=== PATIENT | female | born 1955 | race Caucasian/White ===

== ENCOUNTER 2020-03-18 13:22 | Emergency (ER) | payer BC, SELFPAY ==
[2020-03-18 13:35] VITALS: BP 140/97; PULSE 82; RESP 18; TEMP 37.2; O2SAT 98
--- NOTE | 2020-03-18 13:41 | ED.NAVMDI ---
HPI - Nausea/Vomiting/Diarrhea General Chief complaint: Nausea/Vomiting/Diarrhea Stated complaint: nausea headache Time Seen by Provider: 03/18/20 13:41 Source: patient and RN notes reviewed History of Present Illness HPI Narrative: Patient is a 65-year-old female who presents the urgent care with complaints of nausea, headache, chills, sweats and sneezing. Patient states her symptoms started on Monday and the chills and sweats are more sore during the headache. Patient states that the headache has come and gone and she has not taken anything specifically for her headache. Patient states that she has bad allergies and they recently cut the corn near her house and she typically has allergy-like symptoms after that occurs. Patient denies of any known fever. Denies of any vomiting or diarrhea with the nausea. Denies of any abdominal pain. 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 Patient states that she just does not feel good but is mostly referring to the nausea. Patient states that she has not been fatigued because she has been taking CBD which makes her feel like she has a lot of energy . Patient does not appear to have any signs or symptoms of fatigue, lethargy, harsh upper respiratory symptoms. No acute distress noted. Patient aware of the plan of care. Some parts of this dictation were generated by voice recognition software and may contain typographical and/or grammatical inaccuracies. Related Data Home Medications Medication Instructions Recorded Confirmed Cbd Oil 03/18/20 alprazolam 0.25 mg PO HS PRN 03/18/20 03/18/20 apixaban [Eliquis] 5 mg PO BID 03/18/20 03/18/20 lisinopril 10 mg PO BID PRN 03/18/20 03/18/20 tizanidine 4 mg PO TID PRN 03/18/20 03/18/20 Allergies Allergy/AdvReac Type Severity Reaction Status Date / Time No Known Allergies Allergy Verified 03/18/20 13:48 Review of Systems Review of Systems: Narrative: CONSTITUTIONAL: Reports of chills and sweats without known fever EYES: Denies visual changes, redness, or discharge. ENT: Denies rhinorrhea, congestion, sore throat, or otalgia. Reports of excessive sneezing CARDIOVASCULAR: Denies chest pain, palpitations, or edema. RESPIRATORY: Denies cough or dyspnea. GASTROINTESTINAL: Reports of nausea without diarrhea, vomiting or abdominal pain GENITOURINARY: Denies dysuria or hematuria. SKIN: Denies rash or itching. MUSCULOSKELETAL: Denies back pain, joint pain, or myalgia. NEUROLOGIC: Reports of headache All other systems reviewed are negative, except as documented in HPI. PMFSH Comments At the time of my signature, I reviewed and agree with the nursing past medical, surgical, social, and family history. There is no relevant family history pertinent to the patient complaint. Exam Narrative: Exam Narrative: GENERAL: This is a well-nourished, well-developed patient, in no apparent distress. HEAD: normocephalic, atraumatic. EYES: PERRL. Sclera clear/white. Vision is grossly intact. EARS: External ears normal, auditory canals clear and without drainage, TMs normal without perforation. Hearing grossly intact. NOSE: External nose normal with no obvious nasal discharge, nares without redness, no rhinorrhea. THROAT: Mucous membranes moist, posterior pharynx clear. Mild postnasal drainage NECK: Neck supple, non-tender without lymphadenopathy, masses or thyromegaly. CARDIOVASCULAR: Regular rate and rhythm without murmurs, gallops, or rubs. RESPIRATORY: Clear to auscultation. Breath sounds equal bilaterally. No wheezes, rales, or rhonchi. GASTROINTESTINAL: Abdomen soft, non-tender, nondistended. Bowel sounds are active. SKIN: warm, intact with no suspicious lesions or rash, good texture and turgor. NEURO: awake, alert, and oriented to person, place and time. There were no obvious focal neurologic abnormalities. EXTREMITIES: No clu
== END 2020-03-18 14:10 | disposition home or self-care (01) ==
PROVIDERS: Emergency Provider Nurse Practitioner Family
DX: R11.0 Nausea (principal); I10 Essential (primary) hypertension; Z86.711 Personal history of pulmonary embolism; M06.9 Rheumatoid arthritis, unspecified; M79.7 Fibromyalgia
CPT/HCPCS: 99213; G0463

== ENCOUNTER 2020-05-29 07:55 | Outpatient (RCR) | payer BC, SELFPAY ==
--- NOTE | 2020-05-29 09:21 | PTOPEVAL ---
Thank you for referring Josefina Urbano to [facility].? The patient is scheduled to be seen for therapy? __3__x/week for 12 visits. Please review, sign, date and return this plan of care KENA. I agree with and certify that the following plan of care is medically necessary. Referring Physician Date Admitting Provider: Attending Provider: Ronnell Spicer MD Referring Provider: *PT Outpatient Evaluation Start: 05/29/20 07:56 Freq: Status: Active Protocol: Document 05/29/20 07:56 ACR (Rec: 05/29/20 09:20 ACR [id number]) Therapy Assessment Status Assessment Status Assessment Status Evaluation Outpatient Past Medical History Cardiovascular History Hx Hypertension Yes Respiratory History Hx Pulmonary Embolism Yes Musculoskeletal History Hx Arthritis Yes: RHEUMATOID Hx Fibromyalgia Yes Reproductive History Hx Post Menopausal Yes Hx Tubal Ligation Yes Evaluation Information Problem Diagnosis L knee OA Onset 12/28/19 Subjective Information Patient states that she went Query Text:As Reported By Patient/ to her orthopedic MD on 21 for her knee pain that has been increasing since november. She states she received a cortisone shot on the medial aspect of the knee at the MD on 05/27/20 and the pain has decreased to where she is not waking up with the pain. She has to be careful walking, bending down to get something off the floor , and if she crosses her leg or does any type of twisting motion due to her pain increasing with these movements. She wears a knee brace cathode ray tube assembler that helps when she does bend it. She has stairs to get to her basement and to 3 steps to get into her home. Patient lives alone. Is off of work currently for 3 weeks until she see the doctor again . She states she has a friend that would help her if she needs help, but does as much as she can with breaks between . Prior Level of Function Activity Level (Last 3 Months) Occupation rear load truck driver [employer]
--- NOTE | 2020-08-03 16:10 | PCPTNOTE ---
Patient participated in 8 visits between the dates 05/29/20 to 06/22/20. She has been contacted and has failed to return call to finish POC. Please refer to last daily note for discharge status. Rika Pearce, PT, DPT
== END 2020-06-22 16:15 | disposition home or self-care (01) ==
LOC: CHSPT 07:55
PROVIDERS: Visit Provider Orthopaedic Surgery
DX: M17.12 Unilateral primary osteoarthritis, left knee (principal)
CPT/HCPCS: 97110; 97112; 97161; 97530

== ENCOUNTER 2020-11-09 12:08 | Outpatient (CLI) | payer BC, SELFPAY ==
--- NOTE | ~2020-11-09 | XR_ITS ---
EXAMINATION: XR wrist RT min 3V DATE: 11/09/2020 12:34 INDICATION: Right wrist injury. TECHNIQUE: 4 views of right wrist were obtained. COMPARISON: None. FINDINGS: Bone alignment is normal. No fracture. There is mild osteoarthritis of distal radioulnar shiv int. There is degenerative cystic change in proximal lunate, consistent with ulnolunate impaction syn drome. There is mild osteoarthritis of first and third metacarpophalangeal joints. IMPRESSION: 1. Polyarticular osteoarthritis. Reviewed, dictated and finalized at location A.
--- NOTE | ~2020-11-09 | XR_ITS ---
EXAMINATION: XR hand RT min 3V DATE: 11/09/2020 12:34 INDICATION: Right hand injury. TECHNIQUE: 3 views of right hand were obtained. COMPARISON: None. FINDINGS: Bone alignment is normal. No acute fracture. There is an old healed fracture of head of fif th middle phalanx. There is mild osteoarthritis of distal radioulnar joint, first and third metacarpo phalangeal joints, and some of the interphalangeal joints. IMPRESSION: 1. Polyarticular osteoarthritis. Reviewed, dictated and finalized at location A.
== END 2020-11-09 12:09 | disposition home or self-care (01) ==
LOC: CHSIMG 12:11
PROVIDERS: PCP Internal Medicine; Visit Provider Internal Medicine
DX: S69.91XA Unspecified injury of right wrist, hand and finger(s), initial encounter (principal)
CPT/HCPCS: 73110; 73130

== ENCOUNTER 2021-03-15 11:31 | Outpatient (CLI) | payer BC, SELFPAY ==
--- NOTE | ~2021-03-15 | XR_ITS ---
EXAMINATION: XR shoulder LT min 2V DATE: 03/15/2021 11:54 INDICATION: Left shoulder pain. TECHNIQUE: 4 views of left shoulder were obtained. COMPARISON: None. FINDINGS: Bone alignment is normal. No fracture. Glenohumeral joint is normal. There is severe acromi oclavicular joint osteoarthritis. IMPRESSION: 1. Severe acromioclavicular joint osteoarthritis. Reviewed, dictated and finalized at location A. MIDWIFE
== END 2021-03-15 11:32 | disposition home or self-care (01) ==
LOC: CHSIMG 11:33
PROVIDERS: PCP Internal Medicine; Visit Provider Nurse Practitioner Family
DX: M25.512 Pain in left shoulder (principal)
CPT/HCPCS: 73030

== ENCOUNTER 2021-12-07 13:49 | Outpatient (CLI) | payer BC, SELFPAY ==
--- NOTE | ~2021-12-07 | XR_ITS ---
EXAMINATION: XR chest 2V 12/07/2021 14:18 INDICATION: Fatigue. Smoker. PROCEDURE: 2 view chest COMPARISON: 06/22/2018 FINDINGS: The lungs are clear. The cardiomediastinal silhouette is within normal limits. There are no pleural effusions. There is no pneumothorax suspected. IMPRESSION: 1: NO ACUTE CARDIOPULMONARY DISEASE. Reviewed, dictated and finalized at location A.
[2021-12-07 14:05] LABS: Basophils Absolute Auto 0.07 K/mm3 (0.00-0.10); Eosinophils Absolute Auto 0.19 K/mm3 (0.02-0.50); Eosinophils Percent Auto 2.6 % (1.0-6.0); Hematocrit 41.1 % (35.0-49.0); Hemoglobin 13.6 g/dL (12.0-15.0); Immature Granulocyte Absolute 0.02 K/mm3 (0.00-0.00); Immature Granulocyte Percent A 0.3 % (0.0-0.0); Lymphocytes Absolute Auto 1.74 K/mm3 (1.10-4.50); Lymphocytes Percent Auto 23.9 % (18.0-42.0); Mean Corpuscular HGB Conc 33.1 g/dL (32.0-36.0); Mean Corpuscular Hemoglobin 32.9 pg (27.0-31.0); Mean Corpuscular Volume 99.5 fL (78.0-102.0); Mean Platelet Volume 8.9 fl (9.2-11.8); Monocytes Percent Auto 8.2 % (2.0-11.0); Neutrophils Absolute Auto 4.7 K/mm3 (1.7-7.2); Platelet Count Result 196 K/mm3 (150-420); Red Blood Count 4.13 M/mm3 (4.20-5.40); Red Cell Distribution Width 13.6 % (11.6-14.4); White Blood Count 7.3 K/mm3 (4.8-10.8)
[2021-12-07 14:08] LABS: Appearance Urine Clear (Clear); Bilirubin Urine Negative (Negative); Color Urine Light Yellow (Yellow); Glucose Urine UA Negative (Negative); Ketones Urine Negative (Negative); Leukocyte Esterase Ur Trace (Negative); Nitrate Urine Negative (Negative); Protein Urine Negative (Negative); Urobilinogen Urine 0.2 mg/dL (0.2-1.0); pH Urine 5.5 (5.0-8.0)
[2021-12-07 14:12] LABS: Add Urine Microscopic? YES; Bacteria Urine None seen /hpf; Blood Urine Trace-Intact (Negative); RBC Urine 0-2 /hpf (0-2); Squamous Epithelial Cell Urine Rare /hpf (Few); WBC Urine 0-3 /hpf (0-3)
[2021-12-07 15:06] LABS: Alanine Aminotransferase 24 U/L (14-59); Albumin Level 3.7 g/dL (3.4-5.0); Alkaline Phosphatase 90 U/L (46-116); Anion Gap 10 mmol/L (8-16); Aspartate Amino Transferase 21 U/L (15-37); Bilirubin,Total 0.4 mg/dL (0.00-1.00); Blood Urea Nitrogen 10 mg/dL (7-18); Calcium 8.9 mg/dL (8.5-10.1); Carbon Dioxide 26 mmol/L (21-32); Chloride 105 mmol/L (98-108); Estimated Glomerular Filt Rate > 60; Free T3 2.06 pg/mL (2.18-3.98); Free T4 Free Thyroxine 0.79 ng/dL (0.76-1.46); Glucose 93 mg/dL (70-99); Osmolality Calculated 291 mOsm/kg (285-295); Potassium 4.6 mmol/L (3.5-5.1); Sodium 141 mmol/L (136-145); Thyroid Stimulating Hormone 0.58 uIU/mL (0.36-3.74); Total Protein 6.5 g/dL (6.4-8.2)
[2021-12-07 15:12] LABS: CRP < 0.2 mg/dL (0.0-0.9); Vitamin B12 > 2000 pg/mL (193-986)
[2021-12-10 09:00] LABS: Methylmalonic Acid 167 nmol/L (87-318)
== END 2021-12-07 13:50 | disposition home or self-care (01) ==
LOC: CHSLAB 13:52
PROVIDERS: PCP Internal Medicine; Visit Provider Internal Medicine
DX: R53.83 Other fatigue (principal); Z87.891 Personal history of nicotine dependence
CPT/HCPCS: 36415; 71046; 80053; 81001; 82607; 83921; 84439; 84443; 84481; 85025; 86140

== ENCOUNTER 2022-06-30 10:58 | Outpatient (RCR) | payer MEDICARE, SELFPAY ==
--- NOTE | 2022-06-30 11:45 | PTOPEVAL1 ---
Assessment and note entered by JT File, PT Evaluation Information Assessment Status Evaluation Diagnosis s/p L TKA Onset 06/27/22 Subjective Information patient reports she had a TKA on 06/27/22. she reports prior to her surgery she was moving slow and limping, but was not using an AD. she reports has a follow up with her MD on 07/08/22. she reports she would like to get back to walking without a limp/AD, ride horses, and care for farm. Reported Pain Level Pain Score 6: Self Report Assessment PT Clinical Summary mrs. lauren is a 67 yo woman who presents to skilled PT services for post op rehab following L TKA. she presents with deficits in rom, strength, ambulation mechanics, and has pain in the L knee. she would benefit from continued skilled PT to improve her objective/functional deficits and progress towards a return to her prior level functional activity performance and quality of life. Plan of Care Interventions Electrical Stimulation,Gait Training,Hot Pack/Cold Pack,Intermittent Compression,Manual Therapy, Neuro Re-education,Patient/Caregiver Educati, Therapeutic Activities,Therapeutic Exercise PT Services Indicated Yes Treatment Frequency and 3x weekly for 12 visits Duration These treatments will address the objective and functional deficits as defined above. The patient will be advanced safely and appropriately in order for the patient to progress towards his/her prior level of function. Additional exercises will be introduced and as well as a comprehensive home exercise program upon discharge, if needed, ?to ensure carryover of functional gains achieved in the clinic. This treatment plan has been reviewed and agreement upon by the patient.
--- NOTE | 2022-07-27 15:20 | PTOPPROG ---
Assessment and note entered by JT File, PT Evaluation Information Assessment Status Progress Diagnosis s/p L TKA Onset 06/27/22 Subjective Information patient reports she feels alright this date. 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 she reports she has been compliant with her HEP at home. she reports the knee still feels tight with bending. Assessment PT Clinical Summary mrs. lauren presents to skilled PT for her 10th skilled therapy visit today. she continues to display deficits in L knee rom and gait mechanics. she is progressing towards all goals, but has met goal for HEP performance only today. she would benefit from continued skilled PT to continue to address her objective/functional deficits to achieve all goals. Plan of Care Interventions Gait Training,Hot Pack/Cold Pack,Intermittent Compression,Manual Therapy,Neuro Re-education, Patient/Caregiver Educati,Therapeutic Activities, Therapeutic Exercise PT Services Indicated Yes Treatment Frequency and continue per initial POC Duration These treatments will address the objective and functional deficits as defined above. The patient will be advanced safely and appropriately in order for the patient to progress towards his/her prior level of function. Additional exercises will be introduced and as well as a comprehensive home exercise program upon discharge, if needed, ?to ensure carryover of functional gains achieved in the clinic. This treatment plan has been reviewed and agreement upon by the patient.
== END 2022-08-01 15:18 | disposition home or self-care (01) ==
LOC: CHSPT 10:58
PROVIDERS: Visit Provider Orthopaedic Surgery
DX: Z47.1 Aftercare following joint replacement surgery (principal); Z96.652 Presence of left artificial knee joint
CPT/HCPCS: 97014; 97016; 97110; 97161; 97530; G0283

== ENCOUNTER 2022-09-12 14:06 | Emergency (ER) | payer MEDICARE, SELFPAY ==
[2022-09-12] VITALS (15 sets, daily range): BP systolic 152–168; BP diastolic 88–107; PULSE 79–90; RESP 18–20; TEMP 36.1–36.6; O2SAT 90–99
--- NOTE | ~2022-09-12 | XR_ITS ---
EXAMINATION: XR chest 2V DATE: 09/12/2022 15:47 INDICATION: Cough. Shortness of breath. TECHNIQUE: Frontal and lateral views of the chest were obtained. COMPARISON: Chest 2 views 12/07/2021 FINDINGS: There is mild atelectasis in the lower lung zones. No pleural effusion or pneumothorax. The heart size is normal. There are surgical clips in the abdomen. IMPRESSION: 1. Mild atelectasis in the lower lung zones. Reviewed, dictated and finalized at location A.
--- NOTE | 2022-09-12 14:20 | ED.SOB ---
HPI - SOB/Dyspnea General Chief Complaint: Upper Respiratory Infection Stated Complaint: cough; positive Flu B Time Seen by Provider: 09/12/22 14:19 Source: patient and RN notes reviewed Mode of arrival: ambulatory Limitations: no limitations History of Present Illness MD elicited complaint: shortness of breath and cough Onset (ago): day(s) (3) Context: recent illness ( Influenza B) Timing: intermittent Severity: moderate Exacerbating factors: exertion and coughing Relieving factors: rest Associated symptoms: cough and sputum production Treatment prior to arrival: none Related Data Home oxygen amount: none Home Medications Medication Instructions Recorded Confirmed apixaban 5 mg tablet (Eliquis) 5 mg PO BID 03/18/20 09/12/22 bupropion HCl 150 mg 24 hr tablet, 150 mg PO DAILY 09/12/22 09/12/22 extended release gabapentin 300 mg capsule 300 mg PO DAILY 09/12/22 09/12/22 losartan 25 mg tablet 25 mg PO BID 09/12/22 09/12/22 Allergies Allergy/AdvReac Type Severity Reaction Status Date / Time No Known Allergies Allergy Verified 09/12/22 14:31 Review of Systems Review of Systems: All systems reviewed & are unremarkable except as noted in HPI and below Constitutional: Constitutional: Denies chills and Denies fever(s) PMFSH Past Medical History Medical History Closed compression fracture of L1 vertebra (~12/20/16) Depression with anxiety (~07/20/15) Essential hypertension (~07/20/15) Fibromyalgia (Unknown) GERD (gastroesophageal reflux disease) (~07/20/15) History of anemia (~08/07/18) History of low back pain (~12/20/16) Hypothyroidism (~06/16/09) Insomnia (~07/20/15) Iron deficiency (~08/07/18) Midline thoracic back pain (~12/20/16) Pulmonary embolism without acute cor pulmonale (~05/17/18) Rheumatoid arthritis (~09/01/16) Surgical History Surgical History History of gastric bypass (~06/27/18) chronic Social History Social History (Updated 09/12/22 @ 16:14 by Dev Kaye MD) Smoking packs per day: 1 Smoking cigarettes per day: 20.0 Years smoked: 15 Smoking pack-years: 15.00 Smoking status: Former smoker Smoking end date: 07/14/03 Alcohol intake: unknown Substance use: unknown Exam Const: General: no acute distress, alert and ill appearing acutely Nutritional Appearance: well nourished Orientation/consciousness: patient oriented x3 Limitations: no limitations HENMT: Head: normal to inspection Ears: external ears normal Face/Nose/Sinus: Normal external nose present Face and sinus: normal facial exam Mouth: Yes moist mucous membranes Eyes: Conjunctivae: conjunctivae normal Pupils: Equal, round and reactive pupils present EOM: EOMs intact bilaterally Neck: Neck: normal visual inspection Resp: Effort & Inspection: normal respiratory effort Auscultation: rales diffuse and rhonchi throughout Cardio: Rate: regular rate Rhythm: regular rhythm GI: GI Palp: Yes Soft to palpation and No Tenderness to palpation present (GI) Auscultation: normal bowel sounds Back/Spine/Pelvis: Cervical Spine: cervical ROM normal Thoracic/Lumbar Spine: thoraco-lumbar ROM normal Skin: General skin exam: normal color Rashes: no rashes Neuro: General: patient oriented x3, moves all extremities, no focal motor deficits and CN's II-XI intact bilaterally Speech: normal speech Gait exam (Neuro): Normal gait present Extrem: General: normal to inspection and no clubbing, cyanosis or edema Psych: Mental Status: mental status grossly normal Affect: normal affect Attitude: cooperative Course Course Emergency Course: patient feels better after getting a treatment with Proventil 4 puffs through a spacer. I am going to treat her for viral bronchitis since we already know she has influenza. Put her on steroids she has a history of tobacco abuse in the past. Vital Signs Vital signs: V
[2022-09-12] MEDS: ALBUTEROL SULFATE (*SP) INHALER 4 PUFF INHALATION (14:54)
[2022-09-12 15:01] LABS: Basophils Absolute Auto 0.02 K/mm3 (0.00-0.10); Basophils Percent Auto 0.4 % (0.0-1.0); Eosinophils Absolute Auto 0.09 K/mm3 (0.02-0.50); Eosinophils Percent Auto 1.9 % (1.0-6.0); Hematocrit 43.8 % (35.0-42.0); Hemoglobin 14.1 g/dL (11.7-13.8); Immature Granulocyte Absolute 0.02 K/mm3 (0.00-0.00); Immature Granulocyte Percent A 0.4 % (0.0-0.0); Lymphocytes Absolute Auto 0.86 K/mm3 (1.10-4.50); Lymphocytes Percent Auto 18.5 % (18.0-42.0); Mean Corpuscular HGB Conc 32.2 g/dL (32.0-36.0); Mean Corpuscular Hemoglobin 31.8 pg (27.0-31.0); Mean Corpuscular Volume 98.6 fL (78.0-102.0); Mean Platelet Volume 8.5 fl (9.2-11.8); Monocytes Absolute Auto 0.34 K/mm3 (0.10-0.90); Monocytes Percent Auto 7.3 % (2.0-11.0); Neutrophils Absolute Auto 3.3 K/mm3 (1.7-7.2); Neutrophils Percent Auto 71.5 % (50.0-70.0); Platelet Count Result 168 K/mm3 (150-420); Red Blood Count 4.44 M/mm3 (4.20-5.40); Red Cell Distribution Width 12.9 % (11.6-14.4); White Blood Count 4.6 K/mm3 (4.8-10.8)
[2022-09-12 15:12] LABS: CRP 9.9 mg/dL (0.0-0.9)
[2022-09-12 15:16] LABS: Alanine Aminotransferase 16 U/L (14-59); Albumin Level 3.4 g/dL (3.4-5.0); Alkaline Phosphatase 116 U/L (46-116); Anion Gap 8 mmol/L (8-16); Aspartate Amino Transferase 23 U/L (15-37); Bilirubin,Total 0.3 mg/dL (0.00-1.00); Blood Urea Nitrogen 6 mg/dL (7-18); Calcium 8.9 mg/dL (8.5-10.1); Carbon Dioxide 31 mmol/L (21-32); Chloride 100 mmol/L (98-108); Estimated CRCL calculation 66 ml/min; Estimated Glomerular Filt Rate > 60; Glucose 71 mg/dL (70-99); Osmolality Calculated 283 mOsm/kg (285-295); Sodium 139 mmol/L (136-145); Total Protein 7.5 g/dL (6.4-8.2)
[2022-09-12 15:19] LABS: Lactic Acid Reflex 2.3 mmol/L (0.4-2.0)
[2022-09-12 15:25] LABS: NT Pro B Type Natriuretic Pept 193 pg/mL (0-125)
[2022-09-12] MEDS: methylPREDNISolone SOD SUCC 125 MG VIAL IM (16:20)
--- NOTE | 2022-10-13 11:19 | PC.NURSE ---
BLOOD CULTURE RESULTS X 2 : NO GROWTH AFTER 5 DAYS
--- NOTE | 2022-10-13 11:20 | PC.NURSE ---
FINAL BLOOD CULTURE RESULTS X2: NO GROWTH AFTER 5 DAYS
== END 2022-09-12 16:31 | disposition home or self-care (01) ==
PROVIDERS: Emergency Provider Emergency Medicine; PCP Physician Assistant
DX: J40 Bronchitis, not specified as acute or chronic (principal); J11.1 Influenza due to unidentified influenza virus with other respiratory manifestations; I10 Essential (primary) hypertension; E03.9 Hypothyroidism, unspecified; Z86.711 Personal history of pulmonary embolism; Z87.891 Personal history of nicotine dependence; Z79.01 Long term (current) use of anticoagulants
CPT/HCPCS: 36415; 71046; 80053; 83605; 83880; 85025; 86140; 87040; 96372; 99283; J2930

== ENCOUNTER 2023-04-03 08:56 | Outpatient (CLI) | payer MEDICARE, SELFPAY ==
--- NOTE | ~2023-04-03 | CT_ITS ---
CT of the Abdomen: Indication: Left upper quadrant pain Technique: 2.5 mm axial scans were obtained through the abdomen following intravenous administration of 100 cc of Omnipaque 350. Dose reduction technique was used on this scan by utilizing automated ex posure control and iterative reconstruction technique. The dose-length product (DLP) was 482.05 mGy-c m. Findings: Scans through the lung bases are unremarkable. Small hiatal hernia present. The liver, spleen, pancreas, adrenals and right kidney are within normal limits. 6 mm nonobstructing left renal stone noted. Cholecystectomy clips present. There are atherosclerotic calcifications of th e aorta. No lymphadenopathy. Evidence of prior presumed bariatric surgery. No bowel obstruction or bowel wall thickening evident. No ascites seen. Compression fracture of L1 present, likely chronic. Impression: Small hiatal hernia, with evidence of prior bariatric surgery. 6 mm nonobstructing left renal stone. Chronic compression deformity of L1. Reviewed, dictated and finalized at [facility]. [employer] TECHNICIAN Impression: Small hiatal hernia, with evidence of prior bariatric surgery. 6 mm nonobstructing left renal stone. Chronic compression deformity of L1.
[2023-04-03 09:18] LABS: Estimated Glomerular Filt Rate > 60
== END 2023-04-03 08:57 | disposition home or self-care (01) ==
LOC: CHSIMG 08:57
PROVIDERS: PCP Physician Assistant; Visit Provider Physician Assistant
DX: R10.12 Left upper quadrant pain (principal); K44.9 Diaphragmatic hernia without obstruction or gangrene; N20.0 Calculus of kidney; M43.8X6 Other specified deforming dorsopathies, lumbar region
CPT/HCPCS: 74160; Q9967

== ENCOUNTER 2024-05-07 13:54 | Outpatient (CLI) | payer MEDICARE, SELFPAY ==
--- NOTE | ~2024-05-07 | MM_ITS ---
EXAMINATION: MM screening zoë BI w suma HISTORY: Screening TECHNIQUE: Craniocaudal and mediolateral oblique 3-D tomosynthesis images were obtained and synthetic 2-D images were generated. CAD analysis was submitted and interpreted. COMPARISON: No prior mammogram is available for comparison at this institution. BREAST PARENCHYMAL COMPOSITION: Not Dense: The breasts are almost entirely fatty. FINDINGS: There is no evidence of suspicious mass, calcification, or architectural distortion to sugg est malignancy in either breast. There has been no suspicious interval change. IMPRESSION: 1. No mammographic evidence of malignancy. 2. Recommend routine screening mammography in one year. BI-RADS Category 1: Negative Reviewed, dictated and finalized at location B. ORK SUPPORT
== END 2024-05-07 13:55 | disposition home or self-care (01) ==
PROVIDERS: PCP Physician Assistant; Visit Provider Physician Assistant
DX: Z12.31 Encounter for screening mammogram for malignant neoplasm of breast (principal)
CPT/HCPCS: 77063; 77067

== ENCOUNTER 2024-10-16 12:46 | Outpatient (CLI) | payer MEDICARE, SELFPAY ==
--- OUTSIDE RECORDS SUMMARY | 2024-10-16 14:10 | XMS_ITS | Clinical Summary ---
Author Organization [email or web address] Address [address] [place] [address] Care Team Providers Care Alcohol Law Enforcement Agent Name Role Phone Khurram Varghese Primary Care Provider Abimbola hudson Source Comments [email or web address],non-owned Affiliates and Associated Physician Practices is amultiple site organization consisting of ambulatory clinics and hospital sitesin [place], [place], [place] and [place]. This disclosure is being madepursuant to the Care Everywhere program and may not contain all information available regarding this patient. Last updated [email or web address] Allergies No known active allergies Medications * Be aware that medications may not be up to date on this document. Alwaysverify current medications with the patient. LEVOTHYROXINE SODIUM PO Take 0.075 mg by mouth daily. Take am of OR Active VITAMIN B-1 PO Take by mouth. 1qd Active BAND MULTI-FORMULA (BARIATRIC ADVANTAGE VITABAND) Take 1 Tab by mouth daily. 2 qd Active Cod Liver Oil OIL Take by mouth. A&D 2QD Active Potassium 99 MG TABS Take by mouth. 1 QD Active CALCIUM 500 PO Take by mouth. CHEWABLE 2QD Active VITAMIN B 12 PO Take by mouth. 1 Q 7 DAYS Active omeprazole (PRILOSEC) 20 MG capsule Take 20 mg by mouth daily before breakfast. Take am of OR Active Active Problems Problem Noted Date Diagnosed Date Status following gastric bypass for weight loss 07/14/2009 Acid reflux 06/16/2009 Hypothyroidism 06/16/2009 Generalized anxiety disorder 06/16/2009 Dyspnea on exertion 06/16/2009 Pain in joint, multiple sites 06/16/2009 Back pain 06/16/2009 Rash and other nonspecific skin eruption 010 Insomnia 06/16/2009 Rheumatoid arthritis 06/16/2009 Overview (03/08/2015): Unspecified hemorrhoids with other complication 06/16/2009 Ulcer disease 06/16/2009 Trigger finger, acquired 07/28/2008 Overview (01/29/2015): 07/28/2008 Carpal tunnel syndrome 07/28/2008 Overview (07/28/2008): S/p cts 2005 Polyarthritis 07/28/2008 Overview (07/28/2008): 07/28/2008 3 weeks, duration RF postive, tendonitis and clinical signs fo right CTS today no synovitis, Family History Relation Name Status Comments Brother Alive Father Mother Alive Sister Alive Social History Tobacco Use Types Packs/Day Years Used Date Smoking Tobacco: Former Cigarettes Comments:quit 2004 Alcohol Use Standard Drinks/Week Comments Yes 0 (1 standard drink = 0.6 oz pur e alcohol) 2 beers a month Comments No Sex and Gender Information Value Date Recorded Sex Assigned at Not on file Legal Sex Female 5:31 AM HOT BALLER Gender Identity Not on file Sexual Orientation Not on file 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 Not on file Not on file Not on file Last Filed Vital Signs Vital Sign Reading Time Taken Comments Blood Pressure 119/75 10/19/2009 9:05 AM CDT Pulse 61 10/19/2009 9:05 AM CDT Temperature 36.8 C (98.2 F) 10/19/2009 9:05 AM CDT Respiratory Rate 16 10/19/2009 9:05 AM CDT Oxygen Saturation 92% 07/20/2009 6:04 AM CDT Inhaled Oxygen Concentration - - Weight 109.6 kg (241 lb 10 oz) 07/17/2009 12:35 AM CDT Height 160 cm (5' 3) 07/15/2009 8:00 PM CDT Body Mass Index 42.8 07/15/2009 8:00 PM CDT Plan of Treatment Health Maintenance Due Date Last Done Comments BONE DENSITY TESTING 1957 COLOGUARD (AGES 45-75) - COL ON CA SCREENING 1957 COLON MONITORING 1957 COLONOSCOPY - COLON CA SCREENING 1957 CT COLONOGRAPHY - COLON CA SCREENING 1957 Colorectal Cancer Screening 1957 FIT - COLON CA SCREENING 1957 FLEX SIG - COLON CA SCREENING 1957 MAMMOGRAM 1957 HEPATITIS C SCREENING 02/12/1975 DTAP/TDAP/TD VACCINES (1 - Tdap) 02/17/1976 PNEUMOCOCCAL VACCINE 50+ (1 of 1 - PCV) 2007 ZOSTER VACCINE (1 of 2) 2007 LIPID TESTING 07/28/2015 07/27/2010, 01/12/2010, 06/17/2009 Respiratory Syncytial Virus (RSV) Vaccine Pt: or over 60 yrs (1 - Risk 60-74 years 1-dose series) 2017 COVID-19 VACCINE ( - 2023-2 5 season) 2023 DEPRESSION SCREENING 05/01/2024 INFLUENZA VACCINE (Season Ended) 2024 HEPATITIS B VACCINE Aged Out No longe r eligible based on patient's age to complete this topic HIB VACCINE Aged Out No longer eligi ble based on patient's age to complete this topic HPV VACCINE Aged Out No longer eligi ble based on patient's age to complete this topic MENINGOCOCCAL (Group B) VACCINE SHARED DECISION-MAKING Aged Out No longer eligible based on patient's age to complete this topic MENINGOCOCCAL GROUPS A/C/Y/W VACCINE Aged Out No longer eligible b ased on patient's age to complete this topic Procedures Procedure Name Priority Date/Time Associated Diagnosis Comments LIPID PROFILE STAT 07/27/2010 8:45 AM CDT from Last 3 Months or Most Recently Relevant to Health Maintenance Results * LIPID PROFILE (07/27/2010 8:45 AM CDT) Cholesterol 172 120.0 - 200.0 mg/dl [facility] Triglycerides 50 0.0 - 250.0 mg/dl [facility] HDL Cholesterol 88 >40 mg/dl [facility] LDL Calculated 74.0 mg/dl [facility] Chol HDL Ratio 2.0 [facility] Comment Lipid [facility] Comment: Risk Classification HDL CHOL LDL CHOL TOTAL CHOL According to NCEP (mg/dl) (mg/dL) (mg/dl) Desirable >40 <130 < 200 Borderline/High - 130-159 200-239 High - >159 > 239 The total cholesterol to HDL cholesterol ratio may be used to predict risk for coronary heart disease in untreated patients according to data reported from the [place] Study by Chang Baig M.D. The predictive value in patients over 60 years of age is uncertain. Risk TOTAL CHOL/HDL RATIO MEN WOMEN 1/2 Average 3.43 3.27 Average 4.97 4.44 2X Average 9.55 7.05 3X Average 23.39 11.04 In Coronary Artery Disease patients, in whom nonpharmacological therapy has failed, the AHA recommends that drug therapy should be prescribed to lower LDL cholesterol to <100mg/dL. Drug therapy may be instituted in patients with HDL <35mg/dL. The reported LDL is a calculated result. For a more precise measurement, a direct LDL test is available, as necessary. BLOOD SPECIMEN / Unknown 07/27/2010 8:45 AM CDT 07/27/2010 9:05 AM CDT Jose L Thomas MD LAB - CHEMISTRY ORDERABLES nal Result [facility] [address] [place] [address] from Last 3 Months or Most Recently Relevant to Health Maintenance Insurance [employer] Loans Advance Directives * Full Code (Latest Code Status on File) Date Activated Date Inactivated Comments 07/15/2009 11:27 AM 07/21/2009 1:28 AM Care Teams Alcohol Law Enforcement Agent Relationship Specialty Start Date End Date Khurram Varghese PCP - General 12/18/17
--- OUTSIDE RECORDS SUMMARY | 2024-10-16 14:10 | XMS_ITS | Encounter Summary ---
Author Organization [facility] Address [address] [place] [address] Phone Care Team Providers Care Overhead Crane Technician Name Role Phone Yessenia Ernst MD Primary Care Provider Lacey Mccarthy APRN, FISHING GAME WARDEN Unavailable [phone] Reason for Visit * Reason Comments Medication Refill Encounter Details Date Type Department Care Team (Late st Contact Info) Description 02/24/2021 Refill [facility] [address] [place] [address] Yessenia Ernst MD [address] [place] [address] Medication Refill Social History Tobacco Use Types Packs/Day Years Used Date Smoking Tobacco: Former Cigarettes Q uit: 07/14/2003 Smokeless Tobacco: Never Alcohol Use Standard Drinks/Week Comments Yes 0 (1 standard drink = 0.6 oz pur e alcohol) PHQ-2 Answer Date Recorded Total Score - Questions 1-9 0 03/01 Education Answer Date Recorded What is the highest level of school you have completed or the highest degree you have received? 12th grade 04/28/2020 Comments No Sex and Gender Information Value Date Recorded Sex Assigned at Not on file Legal Sex Female 11:02 PM CDT Gender Identity Not on file Sexual Orientation Not on file documented as of this encounter Miscellaneous Notes * Telephone Encounter - Gena Bustillo RN - 03/03/2021 2:34 PM CDT Attempted to call patient to schedule f/u, no answer at this time. Left message to call back. * Telephone Encounter - Yessenia Ernst MD - 03/01/2021 8:27 AM CDT Need Follow-up yearly exam with labs done prior. Please see the labs ordered at last office visit. Extend these lab orders if needed. * Telephone Encounter - Gena Bustillo RN - 02/24/2021 1:17 PM CDT Medication failed the protocol, provider to review and approve the medication order if appropriate. Requested Prescriptions Pending Prescriptions Disp Refills lisinopril (PRINIVIL, ZESTRIL) 10 MG Tablet [Pharmacy Med Name: Lisinopril 10 MG Oral Tablet] 180 Tablet 0 Sig: Take 1 tablet by mouth twice daily REBEKAH Inhibitors Protocol Failed - 02/24/2021 1:17 PM Failed - Serum potassium on record in past 12 months No results found for: POTASSIUM, POCTK Failed - GFR on record in past 12 months No results found for: GFRNA Passed - Blood pressure on record in past 12 months Clinician-entered: BP Readings from Last 3 Encounters: 03/10/20 124/82 12/03/18 104/66 09/11/18 122/78 Patient-entered: No data recorded Passed - Visit with relevant provider in past 12 months or upcoming 90 days Recent Visits Date Type Provider Dept 04/28/20 Telemedicine Sherron Funes APRN, FISHING GAME WARDEN [facility] 03/10/20 Office Visit Yessenia Ernst MD [facility] Showing recent visits within past 365 days and meeting all other requirements Future Appointments No visits were found meeting these conditions. Showing future appointments within next 90 days and meeting all other requirements documented in this encounter Plan of Treatment Not on file documented as of this encounter Visit Diagnoses Diagnosis Essential hypertension Unspecified essential hypertension documented in this encounter Additional Health Concerns Assessment Noted Time PHQ-9 Depression Total Score: 0 03/10/20 20 11:00 AM BLOCK CUTTER documented as of this encounter Care Teams Overhead Crane Technician Relationship Specialty Start Date End Date Yessenia Ernst MD PCP - General Family Medicine 02/16/15 07/18/23 Lacey Mccarthy APRN, FISHING GAME WARDEN Obstetrics & Gynecology 06/09/17 documented as of this encounter
--- OUTSIDE RECORDS SUMMARY | 2024-10-16 14:10 | XMS_ITS | Encounter Summary ---
Author Organization [facility] Address [address] [place] [address] Phone Care Team Providers Care Marketing Producer Name Role Phone Yessenia Ernst MD Primary Care Provider Lacey Mccarthy APRN, PIPE WELDER Unavailable [phone] Reason for Visit * Reason Comments Medication Refill Encounter Details Date Type Department Care Team (Late st Contact Info) Description 02/23/2021 Refill [facility] [address] [place] [address] Yessenia Ernst MD [address] [place] [address] Medication Refill Social History Tobacco [...] Telephone Encounter - Gena Bustillo RN - 03/23/2021 10:11 AM CST 3rd Attempt to call patient with results, no answer at this time. Letter mailed. LOADER * Telephone Encounter - Gena Bustillo RN - 03/16/2021 1:44 PM CST 2nd Attempt to call patient, no answer at this time. Left message to call back. LOADER * Telephone Encounter - Gena Bustillo RN - 02/24/2021 4:05 PM CDT Attempted to call patient to schedule f/u, no answer at this time. Left message to call back. * Telephone Encounter - Yessenia Ernst MD - 02/23/2021 8:49 PM CDT Need follow-up appointment as recommended at last office visit. * Telephone Encounter - Maryuri Navarro RN - 02/23/2021 9:37 AM CDT Medication failed the protocol, provider to review and approve the medication order if appropriate. Requested Prescriptions Pending Prescriptions Disp Refills Eliquis 5 MG Tablet [Pharmacy Med Name: Eliquis 5 MG Oral Tablet] 180 Tablet 0 Sig: Take 1 tablet by mouth twice daily [facility] Not Delegated - Hematology: Anticoagulants Failed - 02/23/2021 9:29 AM Failed - This refill cannot be delegated Passed - Valid encounter within last 12 months Past Office Visits Recent Outpatient Visits 10 months ago Chronic pain of left knee [facility] - Family Medicine [facility] HuSherron hopson APN, CNP 11 months ago Physical exam, annual (Adult) [facility] Yessenia Ernst MD 2 years ago Physical exam, annual (Adult) [facility] Yessenia Vanessa MD 2 years ago Left shoulder pain, unspecified chronicity [facility] - Yessenia Vanessa MD 2 years ago Anemia, unspecified type [facility] [place] Dayanna John September, Upcoming Appointments EVENT SALES MANAGER - Recent and Past Visits Recent Visits Date Type Provider Dept 04/28/20 Telemedicine Sherron Funes APN, CNP [facility] 03/10/20 Office Visit Yessenia Ernst MD [facility] Showing recent visits within past 460 days with a meds authorizing provider and meeting all other requirements Future Appointments No visits were found meeting these conditions. Showing future appointments within next 90 days with a meds authorizing provider and meeting all other requirements documented in this encounter Plan of Treatment Not on file documented as of this encounter Visit Diagnoses Not on filedocumented in this encounter Additional Health Concerns Assessment Noted Time PHQ-9 Depression Total Score: 0 03/10/20 20 11:00 AM CAGE LOADER documented as of this encounter Care Teams Marketing Producer Relationship Specialty Start Date End Date Yessenia Ernst MD PCP - General Family Medicine 02/16/15 07/18/23 Lacey Mccarthy APRN, CNP Obstetrics & Gynecology 06/09/17 documented as of this encounter
--- OUTSIDE RECORDS SUMMARY | 2024-10-16 14:10 | XMS_ITS | Encounter Summary ---
Author Organization [facility] Address [address] [place] [address] Phone Care Team Providers Care Brake Drum Molder Name Role Phone Yessenia Ernst MD Primary Care Provider Lacey Mccarthy APRN, WHEEL BUFFER Unavailable Reason for Visit * Reason Comments Medication Refill Encounter Details Date Type Department Care Team (Late st Contact Info) Description 05/06/2020 Refill [facility] - [place] [address] [place] [address] Yessenia Ernst MD [address] [place] [address] Medication Refill Social History Tobacco [...] on file Sexual Orientation Not on file COVID-19 Exposure Response Date Recorded In the last month, have you been in contact with someone who was confirmed or suspected to have Coronavirus / COVID-19? No / Unsure 05/06/2020 10:30 AM PROFESSOR OF LATIN AMERICAN STUDIES documented as of this encounter Miscellaneous Notes * Telephone Encounter - Marian Kumar Sofia, [facility] - 05/06/2020 9:39 AM CST Medication failed the protocol, provider to review and approve the medication order if appropriate. Requested Prescriptions Pending Prescriptions Disp Refills ALPRAZolam (XANAX) 0.5 MG Tablet [Pharmacy Med Name: ALPRAZolam 0.5 MG Oral Tablet] 30 Tab 0 Sig: TAKE 1 TABLET BY MOUTH ONCE DAILY NEEDED FOR ANXIETY Not Delegated - Psychiatry: Anxiolytics/Hypnotics Failed - 05/06/2020 9:32 AM Failed - This refill cannot be delegated Passed - Valid encounter within last 6 months Past Office Visits Recent Outpatient Visits 1 week ago Chronic pain of left knee [facility] Sherron Funes APN, WHEEL BUFFER 1 month ago Physical exam, annual (Adult) [facility] Yessenia Ernst MD 1 year ago Physical exam, annual (Adult) [facility] Yessenia Ernst MD 1 year ago Left shoulder pain, unspecified chronicity [facility] Yessenia Ernst MD 1 year ago Anemia, unspecified type [facility] Dayanna John September, PAC Upcoming Appointments Future Appointments Today [address] MRI, [facility] In 1 month Yessenia Ernst MD [facility] CENTRIFUGAL WAX MOLDER - Recent and Past Visits Recent Visits Date Type Provider Dept 04/28/20 Telemedicine Sherron Funes APN, WHEEL BUFFER [facility] 03/10/20 Office Visit Yessenia Ernst MD [facility] Showing recent visits within past 460 days with a meds authorizing provider and meeting all other requirements Future Appointments Date Type Provider Dept 06/15/20 Appointment [facility] Showing future appointments within next 90 days with a meds authorizing provider and meeting all other requirements ESSOR [employer] documented in this encounter Plan of Treatment Not on file documented as of this encounter Visit Diagnoses Diagnosis Depression with anxiety Dysthymic disorder documented in this encounter Additional Health Concerns Assessment Noted Time PHQ-9 Depression Total Score: 0 03/10/20 20 11:00 AM PROFESSOR OF [employer]UDIES documented as of this encounter Care Teams Brake Drum Molder Relationship Specialty Start Date End Date Yessenia Ernst MD PCP - General Family Medicine 02/16/15 07/18/23 Lacey Mccarthy, TRAIN ATTENDANT, WHEEL BUFFER Obstetrics & Gynecology 06/09/17 documented as of this encounter
--- OUTSIDE RECORDS SUMMARY | 2024-10-16 14:10 | XMS_ITS | Clinical Summary ---
Author Organization [facility] Address [address] [place] [address] Phone Care Team Providers Care Sander And Buffer Name Role Phone Lacey Mccarthy APRN, BABBITT SPINNER Unavailable [phone] Allergies No known active allergies Medications omeprazole (PRILOSEC) 40 MG CAPSULE DELAYED RELEASE Take 40 mg by mouth daily. Active tiZANidine (ZANAFLEX) 4 MG Tablet Take 1 Tab by mouth 3 times daily as needed (pain). 90 Tab 1 0 Active ALPRAZolam (XANAX) 0.5 MG TabletIndications :Depression with anxiety TAKE 1 TABLET BY MOUTH ONCE DAILY NEEDED FOR ANXIETY 30 Tab 1 Active citalopram (CeleXA) 40 MG TabletIndications :Depression with anxiety Take 1 tablet by mouth once daily 90 Tablet 1 Active lisinopril (PRINIVIL, ZESTRIL) 10 MG TabletIndications :Essential hypertension Take 1 tablet by mouth twice daily 60 Tablet 1 Active Eliquis 5 MG Tablet Take 1 tablet by mouth twice daily 60 Tablet 1 Active Active Problems Problem Noted Date Diagnosed Date Iron deficiency 08/07/2018 Anemia, unspecified 08/07/2018 History of gastric bypass 06/27/2018 Other pulmonary embolism without acute cor pulmo nale 05/17/2018 Closed compression fracture of L1 lumbar vertebr a 12/20/2016 Chronic midline low back pain 12/20/2016 Midline thoracic back pain 12/20/2016 Rheumatoid arthritis 09/01/2016 Insomnia 07/20/2015 Essential hypertension 07/20/2015 Gastroesophageal reflux disease 07/20/2015 Depression with anxiety 07/20/2015 Hypothyroidism 06/16/2009 Fibromyalgia Immunizations Immunization Administration Dates Next Due Hepatitis B Vaccine 06/05/2019 Influenza Vaccine 02/17/2018 Influenza Vaccine greater than 3 yrs 02/01/2016, 01/19/2015 Influenza Vaccine, Quadrivalent, PF 03/10/2020 Influenza, Seasonal, Injectable, Undefined 01/31,01/19/2015 TD VACCINE 03/07/2018 TDAP Vaccine 01/19/2015 Td (Adult) 05/14/2018 Social History Tobacco Use Types Packs/Day Years Used Date Smoking Tobacco: Former Cigarettes Q uit: 07/14/2003 Smokeless Tobacco: Never Tobacco Cessation:Counseling Given: Yes Alcohol Use Standard Drinks/Week Comments Yes 0 [...] on file Sexual Orientation Not on file Last Filed Vital Signs Vital Sign Reading Time Taken Comments Blood Pressure 124/82 03/10/2020 11:43 AM IT BUSINESS SYSTEMS ANALYST Pulse 75 03/10/2020 11:43 AM IT BUSINESS SYSTEMS ANALYST Temperature 36.4 C (97.6 F) 03/10/2020 11:43 AM IT BUSINESS SYSTEMS ANALYST Respiratory Rate 18 03/10/2020 11:43 AM IT BUSINESS SYSTEMS ANALYST Oxygen Saturation 97% 03/10/2020 11:43 AM IT BUSINESS SYSTEMS ANALYST Inhaled Oxygen Concentration - - Weight 77.7 kg (171 lb 6.4 oz) 03/10/2020 11:43 AM IT BUSINESS SYSTEMS ANALYST Height 160 cm (5' 3) 03/10/2020 11:43 AM IT BUSINESS SYSTEMS ANALYST Body Mass Index 30.36 03/10/2020 11:43 AM IT BUSINESS SYSTEMS ANALYST Plan of Treatment Health Maintenance Due Date Last Done Comments Hepatitis C Virus (HCV) Screening 1955 Cologuard 2002 Immunochemical Fecal Occult Blood 2002 Pneumococcal Immunization (50+ years) (1 of 1 - PCV) 2007 Zoster Immunization (1 of 2) 2007 Respiratory Syncytial Virus (RSV) Immunization (Adult) (1 - Risk 60-74 years 1-dose series) 2017 Hepatitis B Immunization (2 of 3 - 19+ 3-dose series) 07/03/2019 06/05/2019 SARS-COV-2 Immunization (1 - 2023- season) 2023 Influenza Immunization (Season Ended) 2024 03/10/2020, 02/17/2018, 02/01/2016, Additional history exists Td Immunization Every 10 Years (Adults With 1 Tdap) 05/14/2028 05/14/2018, 03/07/2018, 01/19/2015 Colonoscopy 09/07/2028 09/07/2018, 09/07/2018 Colorectal Cancer Screening 09/07/2028 Cervical Cancer Screening (CCS) Discontinued Pap Smear Discontinued 06/01/2010 DEXA Bone Density Discontinued 02/11/2016, 02/11/2016 Mammogram Discontinued 07/03/2018, 04/04/2016 HPV/Cotest Discontinued Human Papillomavirus (HPV) Immunization Aged Out No longer eligible based on patient's age to complete this topic Meningococcal Immunization (ACWY) Aged Out No longer eligible based on patient's age to complete this topic Rotavirus Immunization Aged Out No lo nger eligible based on patient's age to complete this topic Procedures Procedure Name Priority Date/Time Associated Diagnosis Comments COLONOSCOPY Routine 09/07/2018 [facility] SCREENING BILATERAL DIGITAL W CAD W KATT Routine 07/03/2018 4:38 PM IT BUSINESS SYSTEMS ANALYST Screening for malignant neoplasm of breast CIARAN BONE DENSITOMETRY AXIAL SKELETON Routine 02/11/2016 PATHOLOGY CYTOLOGY PRE PRESS PROOFER Routine 06/01/2010 from Last 3 Months or Most Recently Relevant to Health Maintenance Results * COLONOSCOPY (09/07/2018) Soco Flores MD PROCEDURE/MINOR SURGICAL OR DERABLES Edited Result - Final * [facility] SCREENING BILATERAL DIGITAL W CAD W KATT (07/03/2018 4:38 PM IT BUSINESS SYSTEMS ANALYST) Anatomical Region Laterality Modality breast Bilateral Mammography 07/03/2018 4:07 PM IT BUSINESS SYSTEMS ANALYST Narrative 07/04/2018 1:10 PM IT BUSINESS SYSTEMS ANALYST - [facility] SCREENING BILATERAL DIGITAL W CAD W KATT BILATERAL DIGITAL SCREENING MAMMOGRAM 3D/2D WITH CAD WITH MEDIOLATERAL OBLIQUE CRANIOCAUDAL: 07/03/2018 The study was acquired using digital technology and interpreted from soft copy. Current study was also evaluated with ICAD version 7.2. CLINICAL: Routine screening. Patient has no complaints. No personal history of cancer. No family history of breast cancer. COMPARISONS: Comparison is made to exams dated: 04/04/2016, 12/23/2014, and 07/17/2013 [facility]. BREAST TISSUE:There are scattered fibroglandular densities in both breasts. FINDINGS: There is a mass in the left breast at 1 o'clock anterior depth. No other significant masses, calcifications, or other findings are seen in either breast. IMPRESSION: BI-RAD 0 ADDITIONAL IMAGING EVALUATION NEEDED The mass in the left breast needs additional evaluation. An immediate follow-up is recommended. The patient has been or will be contacted. Electronically signed by: Sandhya zhao/kim:07/04/2018 12:08:16 Sap Ppm Consultant: Martha BENSON(Guillermo)(Jazzy), [facility] letter sent: Additional Imaging Reading location: [facility] BI-RADS: 0 Additional Imaging Evaluation Needed Procedure Note Sandhya Alonso MD - 07/04/2018 - [facility] SCREENING BILATERAL DIGITAL W CAD W KATT BILATERAL DIGITAL SCREENING MAMMOGRAM 3D/2D WITH CAD WITH MEDIOLATERAL OBLIQUE CRANIOCAUDAL: 07/03/2018 The study was acquired using digital technology and interpreted from soft copy. Current study was also evaluated with ICAD version 7.2. CLINICAL: Routine screening. Patient has no complaints. No personal history of cancer. No family history of breast cancer. COMPARISONS: Comparison is made to exams dated: 04/04/2016, 12/23/2014, and 07/17/2013 [facility]. BREAST TISSUE:There are scattered fibroglandular densities in both breasts. FINDINGS: There is a mass in the left breast at 1 o'clock anterior depth. No other significant masses, calcifications, or other findings are seen in either breast. IMPRESSION: BI-RAD 0 ADDITIONAL IMAGING EVALUATION NEEDED The mass in the left breast needs additional evaluation. An immediate follow-up is recommended. The patient has been or will be contacted. Electronically signed by: Sandhya zhao/claudiarad:07/04/2018 12:08:16 Sap Ppm Consultant: Martha Javed RT(R)(M), [facility] letter sent: Additional Imaging Reading location: [facility] BI-RADS: 0 Additional Imaging Evaluation Needed us Yessenia Ersnt MD IMG MAMMO ORDERABLES Final R esult * CIARAN BONE DENSITOMETRY AXIAL SKELETON (02/11/2016) Anatomical Region Laterality Modality BODY N/A Other us Niraj John MD IMG DEXA ORDERABLES Final Result * PATHOLOGY CYTOLOGY PRE PRESS PROOFER (06/01/2010) Specimen of unknown material (specimen) us Lacey Mccarthy LAW ENFORCEMENT DIRECTOR, BABBITT SPINNER PATHOLOGY/CYTOLOGY ORDER SAMANTHA Final Result from Last 3 Months or Most Recently Relevant to Health Maintenance Insurance [facility] Care Teams Sander And Buffer Relationship Specialty Start Date End Date Lacey Mccarthy APRN, BABBITT SPINNER Obstetrics & Gynecology 06/09/17
--- OUTSIDE RECORDS SUMMARY | 2024-10-16 14:10 | XMS_ITS | Encounter Summary ---
Author Organization [facility] Address [address] [place] [address] Phone Care Team Providers Care Rope Tier Name Role Phone Yessenia Ernst MD Primary Care Provider Lacey Mccarthy APRN, PASTING MACHINE OFFBEARER Unavailable Reason for Visit * Reason Comments Medication Refill Encounter Details Date Type Department Care Team (Late st Contact Info) Description 01/03/2022 Refill [facility] - [address] [place] [address] Yessenia Ernst MD [address] [place] [address] Medication Refill Social History Tobacco [...] encounter Miscellaneous Notes * Telephone Encounter - Josefina Dsouza RN - 01/04/2022 12:21 PM CDT Patient to call provider. documented in this encounter Plan of Treatment Not on file documented as of this encounter Visit Diagnoses Not on filedocumented in this encounter Additional Health Concerns Assessment Noted Time PHQ-9 Depression Total Score: 0 03/10/20 20 11:00 AM WASTEWATER TREATMENT OPERATOR documented as of this encounter Care Teams Rope Tier Relationship Specialty Start Date End Date Yessenia Ernst MD PCP - General Family Medicine 02/16/15 07/18/23 Lacey Mccarthy, OUTFITTER CABIN, PASTING MACHINE OFFBEARER Obstetrics & Gynecology 06/09/17 documented as of this encounter
--- OUTSIDE RECORDS SUMMARY | 2024-10-16 14:11 | XMS_ITS | Encounter Summary ---
Author Organization [facility] Address [address] [place] [address] Phone Care Team Providers Care Reliability Manager Name Role Phone Yessenia Ernst MD Primary Care Provider Lacey Mccarthy APRN, PROP SAWYER Unavailable [phone] Reason for Visit * Reason Comments Medication Refill Encounter Details Date Type Department Care Team (Late st Contact Info) Description 01/09/2020 Refill [facility] - [address] [place] [address] Yessenia Ernst MD [address] [place] [address] Medication Refill Social History Tobacco Use Types Packs/Day Years Used Date Smoking Tobacco: Former Cigarettes Q uit: 07/14/2003 Smokeless Tobacco: Never Alcohol Use Standard Drinks/Week Comments Yes 0 (1 standard drink = 0.6 oz pur e alcohol) PHQ-2 Answer Date Recorded PHQ-2 Score 0 01/03/2019 Comments No Sex and Gender Information Value Date Recorded Sex Assigned at Not on file Legal Sex Female 11:02 PM CDT Gender Identity Not on file Sexual Orientation Not on file documented as of this encounter Miscellaneous Notes * Telephone Encounter - Stephenie Baird RN - 01/09/2020 9:21 PM CDT Medication failed the protocol, provider to review and approve the medication order Requested Prescriptions Pending Prescriptions Disp Refills Eliquis 5 MG Tablet [Pharmacy Med Name: Eliquis 5 MG Oral Tablet] 180 Tab 0 Sig: Take 1 tablet by mouth twice daily Not Delegated - Hematology: Anticoagulants Failed - 01/09/2020 10:12 AM Failed - Valid encounter within last 12 months Past Office Visits Recent Outpatient Visits 1 year ago Physical exam, annual (Adult) [facility] - Yessenia Vanessa MD 1 year ago Left shoulder pain, unspecified chronicity [facility] - Yessenia Vanessa MD 1 year ago Anemia, unspecified type [facility] - Dayanna Lopez Kristin, PAC 1 year ago Other acute pulmonary embolism without acute cor pulmonale (HCC) [facility] - Sherron Stuart APN, PROP SAWYER 1 year ago Other acute pulmonary embolism without acute cor pulmonale (HCC) [facility] - Sherron Stuart REFORESTATION WORKER, PROP SAWYER Upcoming Appointments Future Appointments In 1 month Yessenia Ernst MD [facility] - [address] HUTCHINSON CONCRETING SUPERVISOR - Recent and Past Visits Recent Visits Date Type Provider Dept 12/03/18 Office Visit Yessenia Ernst MD [facility] [address] Showing recent visits within past 460 days with a meds authorizing provider and meeting all other requirements Future Appointments Date Type Provider Dept 02/11/20 Appointment Yessenia Ernst MD [facility] [address] [facility] Showing future appointments within next 90 days with a meds authorizing provider and meeting all other requirements Failed - This refill cannot be delegated cyclobenzaprine (FLEXERIL) 10 MG Tablet [Pharmacy Med Name: Cyclobenzaprine HCl 10 MG Oral Tablet] 30 Tab 0 Sig: TAKE ONE TABLET BY MOUTH NIGHTLY NEEDED FOR MUSCLE SPASMS PLEASE CALL OFFICE FOR APPOINTMENT Not Delegated - Analgesics: Muscle Relaxants Failed - 01/09/2020 10:12 AM Failed - Valid encounter within last 6 months Past Office Visits Recent Outpatient Visits 1 year ago Physical exam, annual (Adult) [facility] - Yessenia Vanessa MD 1 year ago Left shoulder pain, unspecified chronicity [facility] - Yessenia Vanessa MD 1 year ago Anemia, unspecified type [facility] - Dayanna Lopez Kirstin, PAC 1 year ago Other acute pulmonary embolism without acute cor pulmonale (HCC) [facility] - Tutu Stuarty Suzanna, REFORESTATION WORKER, PROP SAWYER 1 year ago Other acute pulmonary embolism without acute cor pulmonale (HCC) [facility] - [address] F[place] Sherron E, REFORESTATION WORKER, PROP SAWYER Upcoming Appointments Future Appointments In 1 month Yessenia Ernst MD [facility] - [address] HUTCHINSON CONCRETING SUPERVISOR - Recent and Past Visits Recent Visits Date Type Provider Dept 12/03/18 Office Visit Yessenia Ernst MD [facility] Showing recent visits within past 460 days with a meds authorizing provider and meeting all other requirements Future Appointments Date Type Provider Dept 02/11/20 Appointment Yessenia Enrst MD [facility] [address] Showing future appointments within next 90 days with a meds authorizing provider and meeting all other requirements Failed - This refill cannot be delegated * Telephone Encounter - Stephenie Baird RN - 01/09/2020 9:21 PM CDT Next OV; 02/11/20 Routing to provider for review and approval. documented in this encounter Plan of Treatment Not on file documented as of this encounter Visit Diagnoses Not on filedocumented in this encounter Additional Health Concerns Assessment Noted Time PHQ-9 Depression Total Score: 0 01/09/20 18 3:00 PM CDT documented as of this encounter Care Teams Reliability Manager Relationship Specialty Start Date End Date Yessenia Ernst MD PCP - General Family Medicine 02/16/15 07/18/23 Lacey Mccarthy APRN, PROP SAWYER Obstetrics & Gynecology 06/09/17 documented as of this encounter
--- OUTSIDE RECORDS SUMMARY | 2024-10-16 14:11 | XMS_ITS ---
Author Organization Unknown Address [address] [place] [phone] Phone Care Team Providers Care Boot Liner Maker Name Role Phone WILLIAM DALYOJ Attending Unavailable NO PCP Primary Unavailable Immunization Immunization Date Status Additional Notes Code Code System Td (adult), 2 Lf tetanus toxoid, preservative free, adsorbed 03/07/2018 Completed 09 CVX Hep B, adult 06/05/2019 Completed 43 CVX Tdap 01/19/2015 Completed 115 CVX Influenza, split virus, trivalent, PF 02/17/2018 Completed 140 CVX Influenza, split virus, trivalent, preservative 01/19/2015 Completed 141 CVX Influenza, split virus, trivalent, preservative 02/01/2016 Completed 141 CVX Influenza, split virus, quadrivalent, PF 03/10/2020 Completed 150 CVX Influenza, split virus, quadrivalent, PF 06/28/2022 Completed 150 CVX Results CPK - Collect Date/Time: 15:46 [facility] ID: [id number] [place], [place], [id number] LOINC: 2157-6 Test Value Unit Reference Range Code Code System Flag CPK 39 U/L L=30 H=170 2157-6 LOINC MAGNESIUM - Collect Date/Savage e: 04/18/2023 15:46 [facility] ID: [id number] [place], [place], [id number] LOINC: 25036-8 Test Value Unit Reference Range Code Code System Flag MAGNESIUM 2.1 mg/dL L=1.6 H=2.3 15049-4 LOINC PHOSPHORUS - Collect Date/Ti me: 04/18/2023 15:46 [facility] ID: [id number] [place], [place], [id number] LOINC: 2777-1 Test Value Unit Reference Range Code Code System Flag PHOSPHORUS 4.5 mg/dL L=2.5 H=4.9 2777-1 LOINC Social History Type Status Start Date End Date Code Code Syst em Smoking History Former smoker 9102566 SNOMED CT Sex Female Vital Signs Vital Sign Value Unit Ionia Value Ionia Unit Date/Time Recent/Initial? Code Code System Body Mass Index 29.58 kg/m2 04/18/2023 14:39 Initial 20371 -5 LOINC Systolic Blood Pressure 157 mm[Hg] 04/18/2023 14:38 Initial 8480- 6 LOINC Diastolic Blood Pressure 109 mm[Hg] 04/18/2023 14:38 Initial 8462- 4 LOINC Body Surface Area 1.83 m2 04/18/2023 14:39 Initial 3140- 1 LOINC Height 160.020 0 cm 63.00 in 04/18/2023 14:39 Initial 8302- 2 LOINC O2 Saturation 96 % 2022 14:38 Initial 22692 -5 LOINC Pulse 92.0 /min 04/18/2023 14:38 Initial 8867- 4 LOINC Temperature 36.1 Palak 96.9 F 04/18/20 14:38 Initial 8310- 5 LOINC Weight 75.75 kg 167.00 lbs 04/18/2023 14:39 Initial 29358 -7 LOINC Medications Medication Start Date End Date Route Frequency Dose Code Code System Medication Instructions Home Meds ALPRAZolam 0.5MG Oral Tablet 06/20/2022 Unknown ORAL NEEDED 3 TIMES A DAY 0.5 MILLIGRAMS 789482 RxNorm TAKE 0.5 MILLIGRAMS ORAL NEEDED 3 TIMES A DAY Eliquis 5MG Oral Tablet 06/20/2022 Unknown ORAL TWICE A DAY 5 MILLIGRAMS 5730300 RxNorm TAKE 5 MILLIGRAMS ORAL TWICE A DAY Gabapentin 300MG Oral Capsule 06/20/2022 Unknown ORAL THREE TIMES A DAY 300 MILLIGRAMS 581482 RxNorm TAKE 300 MILLIGRAMS ORAL THREE TIMES A DAY Losartan Potassium 25MG Oral Tablet 06/20/2022 Unknown ORAL TWICE A DAY 25 MILLIGRAMS 062698 RxNorm TAKE 25 MILLIGRAMS ORAL TWICE A DAY Omeprazole 20 MG Oral Tablet, Delayed Release 06/20/2022 Unknown ORAL ONCE A DAY 20 MG RxNorm TAKE 20 MG ORAL ONCE A DAY Venlafaxine HCl 150MG Oral Capsule, Extended Release 06/20/2022 4 ORAL ONCE A DAY 150 MILLIGRAMS 523324 RxNorm TAKE 150 MILLIGRAMS ORAL ONCE A DAY buPROPion HCl 150MG Oral Tablet, Extended Release 06/20/2022 Unknown ORAL ONCE A DAY 150 MILLIGRAMS 566598 RxNorm TAKE 150 MILLIGRAMS ORAL ONCE A DAY Hospital Discharge Instructions Should you have any questions prior to discharge, please contact a member of your healthcare team. If you have left the hospital and have any questions, please contact your primary care physician. Reason For Referral No Data Found Allergies and Adverse Reactions Allergy Substance Reaction Severity Start Date Concern Status Co de Code System No Known Allergies Active [id number] [facility] MED-CT Plan of Treatment William Established Visit 09/05/2023 Home Sleep Study Prep (38520) 4 Pharynx Esophagus Cine 04/11/2024 Encounters Encounter Diagnosis Start Date Code Code Sys tem Fibromyalgia 04/18/2023 SNOMED-CT Personal Care Team Section Performer Name Performer Role Active Date Inactive Jamel Pierce NOVEMBER PCP - Primary care physician 2022-06-15 2022-06-20 ANNE WONG PCP - Primary care physician 2022-06-20 2022-06-20 ABHILASH PEDROZA PCP - Primary care physician Discharge Summary Notes [facility] 04/18/2023 14:29 Outpatient Rheumatology Record [address] [place] [address] Outpatient Rheumatology Record Main Line: [phone] Patient: FAUZIA SAMANO Gender: F MR#: [id number] Service Code: C Address: [address] [place] [address] [facility]: [facility] State: [place] Zip Code: [address] Admitting Physician: KOHLIMANOJ Family Physician: NO PCP Date of : [id number] Age: 68 Date: 12180603 Time: 1438 p. 1 of 1 VS Temperature Pulse Respiration Blood Pressure O2 Saturation 96.9 Tympanic 92 Pulse Ox 157/109 Right Arm Sitting 96 VS New Weight(kg)/Height 167 lbs oz 75.75 kg 58656.9 g 63 in 1.83 m2 Weight(kg)/Height New BMI 29.58 (select to access below applications) Allergies Problem List Health History Family Health History Immunizations Nurses Notes Nurse's Signature Jackelyn ARREDONDO RN Date 12180603 Time 1441
--- OUTSIDE RECORDS SUMMARY | 2024-10-16 14:11 | XMS_ITS | Data Portability ---
Author Organization [facility], [address] [place] [address] (MD) Address [address] [place] [address] Assessment Encounter Date Assessment Date Assessment LastModified by Organization Details LastModified Time 01/24/2024 01/24/2024 SUBJECTIVE: Josefina Urbano is a very pleasant 68-year-old kymxy-lafu-usf inant female who has had triggering of her right thumb for several months. REVIEW OF SYSTEMS: CONST: No complaints of significant weight changes, fevers or chills. ENT: No complaints of neck pain. RESP: No complaints of pleuritic pain or shortness of breath. CV: No complaints of chest pain. GI: No complaints of abdominal pain, nausea, vomiting, diarrhea, constipation. MSK: No complaints of leg pain. SKIN: No complaints of itching, rashes or skin lesions. PSYCH: No irritability. NEURO: No neuropathic pain or weakness. H/L/IMM: No complaints of excessive bruising or bleeding. Reviewed past medical history, surgical history, family history, social history. No changes except as noted. PHYSICAL EXAMINATION: CONST: Patient is communicative, alert and oriented. EYES: No icterus or redness. RESP: Breathing appears normal, unlabored. GI: Abdomen nondistended. MSK: Extremities without clubbing or edema. Normal range of motion of the major joints. Pulses symmetrical in radial. Head is normocephalic, atraumatic. SKIN: No cyanosis. Warm and dry. No jaundice. PSYCH: Stable mood and affect. NEURO: No speech difficulty. Normal gait. Reviewed recent diagnostic tests, lab work, and imaging. These were reviewed with the patient. Today on exam, the triggering has stopped although now she is having pain and fullness at the MP joint. No pain over her CMC joint. No pain in her MP joint. No pain at her IP joint of her thumb. She is tender over the A1 иван and has a little bit of a fullness. It does not really feel like a retinacular cyst, it feels more like just the flexor tendon has a little catching, but no locking. She was told she had a bone spur. I have x-rays from [facility] that show normal alignment of the thumb and no bone spur. She has some sesamoid bones, but the x-rays to me are normal. IMPRESSION/NAS N: I think her problem is a right trigger thumb. We talked about the treatment options. She wants to get an injection today. I did this today. We will see how she does with this. If she has further problems, we will recommend surgery. She will call us if that is the case. PROCEDURE Risks and benefits of the injection were discussed with the patient. Specifically, risk of elevated sugars after the injection was discussed. The appropriate site was prepped sterilely. A mixture of 1 mL of Depo-Medrol 40 mg/mL and 1 mL of 1% lidocaine and 1 mL of 0.5% Marcaine was injected into the region of the A1 иван. [email or web address] Not available 01/25/2024 11:19:01 Plan of Treatment Reminders Order Date Submit Date Provider Last Modified By Organization Details Last Modified Time Details Appointments None record ed. Lab None record ed. Referral None record ed. Procedures None record ed. Surgeries None record ed. Imaging None record ed. Medication Orders None record ed. Patient TargetsNo targets recorded. Patient InstructionsNo instructions recorded. Reason for Referral None Reported. Results Created Date Observation Date Name Description Value Unit Range Abnormal Flag Note LastModifiedBy Organization Detail LastModifiedTime 03/18/20 24 09/18/2023 XR, thumb No observ ation record ed. [email or web address] Not Available 2023 08:18:42 Result Notes None recorded. Problems Name Problem SNOMED Code Status Onset Date Resolution Date Notes Provider Name and Address Organization Details Recorded Time Pain in right thumb 6847312443573414 Active 2023 Haritha Burch [facility] 4 11:34:32 Trigger thumb of right hand 064029689896243 Active 2023 Chrystal Keller [facility] 21:03:16 Problem Notes None recorded. Medical Equipment None Reported. Medications Name Sig Start Date Stop Date Status Note LastModified by Organization Details LastModified Time tetracycline 500 mg capsule active Not Available Not Available Not Available venlafaxine ER 37.5 mg capsule,extended release 24 hr active Not Available Not Availabl e Not Available venlafaxine ER 75 mg capsule,extended release 24 hr active Not Available Not Availabl e Not Available trazodone 50 mg tablet active Not Available Not Available Not Available venlafaxine ER 150 mg capsule,extended release 24 hr active Not Available Not Availabl e Not Available metronidazole 500 mg tablet active Not Available Not Available No t Available omeprazole 40 mg capsule,delayed release active Not Available Not Available Not Available tramadol 50 mg tablet active Not Available Not Available Not Available alprazolam 0.5 mg tablet active Not Available Not Available Not Available propranolol 10 mg tablet active Not Available Not Available Not Available losartan 25 mg tablet active Not Available Not Available Not Available gabapentin 300 mg capsule active Not Available Not Available Not Available methylprednisolone 4 mg tablets in a dose pack active Not Available Not Available No t Available losartan 50 mg-hydrochlorothiaz jannie 12.5 mg tablet active Not Available Not Elif ilable Not Available aripiprazole 5 mg tablet active Not Available Not Available Not Available bupropion HCl XL 300 mg 24 hr tablet, extended release active Not Available Not Available Not Available bupropion HCl XL 150 mg 24 hr tablet, extended release active Not Available Not Available Not Available duloxetine 30 mg capsule,delayed release active Not Available Not Available Not Available Eliquis 5 mg tablet active Not Availab le Not Available Not Available Vitals None Recorded Social History None recorded. Functional Status None recorded. Mental Status None recorded. Family History Nothing Reported. Medical History No medical history recorded. Gynecological HistoryNo gynecological history recorded. Obstetrics History GPAL:G 0 P 0 0 0 0 Immunizations Vaccine Type Date Status Note Provider Nam e and Address Organization Details Recorded Time Tdap 5 completed Haritha Burch [facility] 01/24/2024 11:34:04 Influenza, split virus, trivalent, preservative 5 completed Haritharicardo Burch [facility] 01/24/2024 11:34:04 Influenza, split virus, trivalent, preservative 6 completed Haritha Burch null, [facility] 01/24/2024 11:34:04 Influenza, split virus, trivalent, PF 8 completed Haritha Burch null, [facility] 01/24/2024 11:34:04 Td (adult), 2 Lf tetanus toxoid, preservative free, adsorbed 8 completed Haritha Burch null, [facility] 01/24/2024 11:34:04 Hep B, adult 0 [facility] 11:34:04 Influenza, split virus, quadrivalent, PF 3 completed [facility] 11:34:04 Influenza, split virus, quadrivalent, PF 0 completed [facility]24 11:34:04 Past Encounters Encounter ID Performer Location Encounter Start Date Encounter Closed Date Diagnosis/Indication Diagnosis SNOMED-CT Code Diagnosis ICD10 Code Diagnosis Note [id number] Hossein Foley MD [address] [place] [address] Orthopedi cs ([place]) [address] [place] [phone] 01/24/2024 11:09:01 01/24/2024 12:07:29 Trigger thumb of right hand 6934166339 26629 M65.311 Health Concerns Section Related Observation LastModified by Organization Detai ls LastModified Time None Recorded Concern Status LastModified by Organization Details LastModified Time None Recorded Advance Directives Directive None Recorded Payers Insurance Date Sequence Insurance Name Policy Number Policy Coronel Covered Member ID Coronel Member ID Guarantor Name 09/25/2024 1 [employer] (MEDICARE REPLACEMENT/ ADVANTAGE - PPO) [id number] Josefina Urbano [id number] Josefina Urbano OBGyn Episode No OBEpisode recorded.
--- OUTSIDE RECORDS SUMMARY | 2024-10-16 14:11 | XMS_ITS ---
Author Organization Unknown Address [address] [place] [phone] Phone Care Team Providers Care Finish Repairer Name Role Phone WILLIAM LANA Attending Unavailable NO PCP Primary Unavailable Immunization [...] virus, quadrivalent, PF 06/28/2022 Completed 150 CVX Social History Type Status Start Date End Date Code Code Syst em Smoking History Former smoker 2649050 SNOMED CT Sex Female Vital Signs Vital Sign Value Unit [place] Value [place] Unit Date/Time Recent/Initial? Code Code System Body Mass Index 29.76 kg/m2 07/04/2023 13:14 Initial 72700 -5 LOINC Systolic Blood Pressure 117 mm[Hg] 07/04/2023 13:13 Initial 8480- 6 LOINC Diastolic Blood Pressure 85 mm[Hg] 07/04/2023 13:13 Initial 8462- 4 LOINC Body Surface Area 1.84 m2 07/04/2023 13:14 Initial 3140- 1 LOINC Height 160.020 0 cm 63.00 in 07/04/2023 13:14 Initial 8302- 2 LOINC O2 Saturation 98 % 2023 13:13 Initial 94732 -5 LOINC Pulse 83.0 /min 07/04/2023 13:13 Initial 8867- 4 [facility] Temperature 36.2 [place]ak 97.1 F 07/04/19 13:13 Initial 8310- 5 [facility] Weight 76.20 kg 168.00 lbs 07/04/2023 13:14 Initial 98069 -7 [facility] Medications Medication Start Date End Date Route Frequency Dose Code Code System Medication Instructions Home Meds ALPRAZolam 0.5MG Oral Tablet 06/20/2022 Unknown ORAL NEEDED 3 TIMES A DAY 0.5 MILLIGRAMS 595691 RxNorm TAKE 0.5 MILLIGRAMS ORAL NEEDED 3 TIMES A DAY Eliquis 5MG Oral Tablet 06/20/2022 Unknown ORAL TWICE A DAY 5 MILLIGRAMS 7627953 RxNorm TAKE 5 MILLIGRAMS ORAL TWICE A DAY Gabapentin 300MG Oral Capsule 06/20/2022 Unknown ORAL THREE TIMES A DAY 300 MILLIGRAMS 504711 RxNorm TAKE 300 MILLIGRAMS ORAL THREE TIMES A DAY Losartan Potassium 25MG Oral Tablet 06/20/2022 Unknown ORAL TWICE A DAY 25 MILLIGRAMS 616819 RxNorm TAKE 25 MILLIGRAMS ORAL TWICE A DAY Omeprazole 20 MG Oral Tablet, Delayed Release 06/20/2022 Unknown ORAL ONCE A DAY 20 MG RxNorm TAKE 20 MG ORAL ONCE A DAY Venlafaxine HCl 150MG Oral Capsule, Extended Release 06/20/2022 4 ORAL ONCE A DAY 150 MILLIGRAMS 801498 RxNorm TAKE 150 MILLIGRAMS ORAL ONCE A DAY buPROPion HCl 150MG Oral Tablet, Extended Release 06/20/2022 Unknown ORAL ONCE A DAY 150 MILLIGRAMS 718307 RxNorm TAKE 150 MILLIGRAMS ORAL ONCE A [...] de Code System No Known Allergies Active 659506204 SNO MED-CT Plan of Treatment William Established Visit 09/05/2023 Home Sleep Study Prep (56213) 4 Pharynx Esophagus Cine 04/11/2024 Encounters Encounter Diagnosis Start Date Code Code Sys tem Fibromyalgia 07/04/2023 SNOMED-CT Personal Care Team Section Performer Name Performer Role Active Date Inactive Da vianca WONG NOVEMBER PCP - Primary care physician 2022-06-15 2022-06-20 ANNE WONG PCP - Primary care physician 2022-06-20 2022-06-20 ABHILASH PEDROZA PCP - Primary care physician
--- OUTSIDE RECORDS SUMMARY | 2024-10-16 14:11 | XMS_ITS | Clinical Summary ---
Author Organization [facility] Address [address] [address] Phone Care Team Providers Care Metropolitan Editor Name Role Phone Unknown, Notinfile Primary Care Provider Unavail able Allergies No known active allergies Medications HYDROcodone-jerzy taminophen (NORCO) 5-325 mg per tablet take 1 tablet by oral route every 12 hours as needed for pain 0 0 07/03/2015 Active citalopram (CeleXA) 20 mg tablet take 1 tablet by oral route every day 0 0 07/03/2015 Active omeprazole (PriLOSEC) 40 mg capsule take 1 capsule by oral route every day before a meal 0 0 10/15/2013 Active lisinopril (PRINIVIL,ZESTR IL) 10 mg tablet Take 1 tablet (10 mg total) by mouth 09/01/2016 Active iron bisgly,ps-FA-B- C#12-succ 65 mg-65 mg -1,000 mcg (24) tablet Take by mouth Active apixaban (ELIQUIS) 5 mg tablet 1 tablet (5 mg total) 2 (two) times a day Active Active Problems Problem Noted Date Diagnosed Date Esophageal dysphagia 08/31/2023 Iron deficiency anemia 07/16/2018 Overview (07/16/2018): Added automatically from request for surgery [id number] [facility] without rheumatoid factor 10/18/2016 High risk medication use 10/18/2016 Leg pain, bilateral 10/18/2016 Chronic low back pain without sciatica 7 Surgical History Surgery Date Site/Laterality Comments CARPAL TUNNEL RELEASE Carpal tunnel release CHOLECYSTECTOMY 30 years ago COLONOSCOPY 11/26/2010 Medical History Medical History Date Comments Asthma Asthma; Comments : MMT 10/15/2013 - Hx Other Medical Rheumatoid arth ritis; Comments: MMT 10/15/2013 - Hx Other Medical back pain; Comm ents: MMT 10/15/2013 - Hx Other Medical Gastric reflux; Comments: MMT 10/15/2013 - Depression Depression Disorder of thyroid Thyroid dise ase Hypertension Hypertension Hx Other Medical pulmonary embol i; Comments: MMT 10/15/2013 - Hx Other Medical cholecystectomy ; Comments: MMT 10/15/2013 - Hx Other Medical knee arthroscop ic surgery; Comments: MMT 10/15/2013 - Family History Medical History Relation Name Comments Cancer Other 1 Family history of Cancer; Dementia Other 2 Family history of Dementia; Diabetes Other 3 Family history of Diabetes; Relation Name Status Comments Other 1 Other 2 Other 3 Social History Tobacco Use Types Packs/Day Years Used Date Smoking Tobacco: Former Cigarettes Q uit: 2003 Smokeless Tobacco: Never Tobacco Cessation:Counseling Given: Not Answered Alcohol Use Standard Drinks/Week Comments Yes 0 (1 standard drink = 0.6 oz pur e alcohol) couple beers a day AUDIT-C Answer Date Recorded Q1: How often do you have a drink containing alcohol? 4 or more times a week 11/06/2023 Q2: How many drinks containi ng alcohol do you have on a typical day when you are drinking? 3 or 4 Q3: How often do you have si x or more drinks on one occasion? Daily or almost daily 11/06/2023 Personal Safety Answer Date Recorded Have you ever been in or are you currently in a harmful physical or emotional relationship or is someone making you feel afraid or unsafe? 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 Gender Identity Not on file Sexual Orientation Not on file Obstetrics History Last Filed Vital Signs Vital Sign Reading Time Taken Comments Blood Pressure 135/84 11/07/2023 2:52 PM CDT Pulse 67 11/07/2023 2:52 PM CDT Temperature 36.4 C (97.5 F) 11/07/2023 2:52 PM CDT Respiratory Rate 16 11/07/2023 2:52 PM CDT Oxygen Saturation 98% 11/07/2023 2:52 PM CDT Inhaled Oxygen Concentration - - Weight 76.7 kg (169 lb) 11/07/2023 12:24 PM CDT Height 160 cm (5' 3) 11/07/2023 12:24 PM CDT Body Mass Index 29.94 11/07/2023 12:24 PM CDT Plan of Treatment Health Maintenance Due Date Last Done Comments Depression Screening 1955 Fall Risk Assessment 1955 Hepatitis C Screening 1955 Pneumococcal vaccine 65+ (1 of 1 - PCV) 2007 Zoster Vaccine (1 of 2) 2007 Osteoporosis Screening-Bone Density Scan 02/10/2018 02/11/2016 Breast Cancer Screening-Mammogram 07/04/2019 07/03/2018, 07/03/2018, 04/04/2016 Well Visit 65+ 2022 Influenza Vaccine (Season Ended) 2024 06/28/2022, 03/10/2020, 02/17/2018, Additional history exists DTaP/Tdap/Td Vaccine (3 - Td or Tdap) 03/07/2028 03/07/2018, 01/19/2015 Colon Cancer Screening-Colonoscopy 09/07/2028 09/07/2018, 05/10/2016, 05/10/2016, Additional history exists Colon Cancer Screening-CT Colonography Discontinued 09/07/2018, 05/10/2016, 05/10/2016, Additional history exists Colon Cancer Screening-DNA Stool Discontinued 09/07/2018, 05/10/2016, 05/10/2016, Additional history exists Colon Cancer Screening-FIT Discontinued 09/07, 05/10/2016, 05/10/2016, Additional history exists Colon Cancer Screening-Sigmoidoscopy Discontinued 09/07/2018, 05/10/2016, 05/10/2016, Additional history exists Hepatitis B Screening Completed 06/05/2019 Procedures Procedure Name Priority Date/Time Associated Diagnosis Comments COLONOSCOPY 09/07/2018 8:29 AM CDT from Last 3 Months or Most Recently Relevant to Health Maintenance Results * COLONOSCOPY (09/07/2018 8:29 AM CDT) Anatomical Region Laterality Modality Other Narrative Procedure Note Soco Flores MD - 09/07/2018 8:29 AM CDT [facility] Patient Name: Josefina Urbano Procedure Date: 09/07/2018 8:29 AM Date of : 1955 Admit Type: Outpatient Age: 63 Gender: Female Attending MD: Soco Flores M.D. Room: [facility] ENDOSCOPY ROOM 1 Note Status: Finalized Patient Profile: 63 WF with iron deficiency anemia. No over GIbleeding. her aunt had colon cancer. Procedure: Colonoscopy Indications: Last colonoscopy: October 2010, Iron deficiencyanemia Referring MD: Yessenia Ernst M.D., Bobby Way M.D. Providers: Soco Flores M.D. Impression: - Small Lipoma in the ascending colon. - Normla colonoscopy otherwsie. - Internal and External hemorrhoids hemorrhoids. - No specimens collected. Recommendation: - Repeat colonoscopy in 7 years for screeningpurposes. Medicines: Monitored Anesthesia Care Complications: No immediate complications. Estimated Blood Loss: Estimated blood loss: none. Procedure: Pre-Anesthesia Assessment: - Prior to the procedure, a History and Physical was performed, and patient medications and allergieswere reviewed. The patient's tolerance of previous anesthesia was also reviewed. The risks and benefitsof the procedure and the sedation options and riskswere discussed with the patient. All questions were answered, and informed consent was obtained. Prior Anticoagulants: The patient has taken no previous anticoagulant or antiplatelet agents. ASA Grade Assessment: II - A patient with mild systemicdisease. After reviewing the risks and benefits, the patientwas deemed in satisfactory condition to undergo the procedure. The benefits, risks and alternatives of theprocedure and sedation were discussed and informed consent was obtained. All questions were answered. Please referto the signed informed consent document in the medical record. The scope was passed under direct vision.The Pediatric Colonoscope [id number]-H190L [id number] was introduced through the anus and advanced to the the cecum, identified by appendiceal orifice andileocecal valve. The colonoscopy was performed without difficulty. The patient tolerated the procedurewell. The quality of the bowel preparation wasexcellent. Findings: Hemorrhoids were found on perianal exam. The ileum appeared normal. The cecum appeared normal. The colon (entire examined portion) appeared normal. No polyps. A 12mm size lipoma noted in the proximal ascending colon. No source of GI bleeding noted in the colon. Internal hemorrhoids were found during retroflexion. The hemorrhoids were medium-sized. Electronically signed by Soco Flores M.D. Soco Flores M.D. 09/07/2018 9:52:39 AM Number of Addenda: 0 Note Initiated On: 09/07/2018 8:29 AM Procedure Code(s): --- Professional --- 73226, Colonoscopy, flexible; diagnostic, including collection of specimen(s) by brushing or washing, when performed (separateprocedure) Diagnosis Code(s): --- Professional --- K64.8, Other hemorrhoids D50.9, Iron deficiency anemia, unspecified CPT copyright 2017 [employer]. All rights reserved. The codes documented in this report are preliminary and upon filament wound parts fabricator reviewmay be revised to meet current compliance requirements. Recognized by the [employer] for promoting quality in endoscopy Soco Flores MD ENDOSCOPY PROCEDURES Final Result from Last 3 Months or Most Recently Relevant to Health Maintenance Insurance [facility] Advance Directives For more information, please contact: [phone] * Full Code (Latest Code Status on File) Date Activated Date Inactivated Comments 11/07/2023 12:17 PM 11/07/2023 7:30 PM * Full Code Date Activated Date Inactivated Comments 11/07/2023 12:17 PM 11/07/2023 12:17 PM * Full Code Date Activated Date Inactivated Comments 09/07/2018 8:22 AM 09/07/2018 2:42 PM * Full Code Date Activated Date Inactivated Comments 09/07/2018 8:22 AM 09/07/2018 8:22 AM Care Teams Metropolitan Editor Relationship Specialty Start Date End Date Unknown, Notinfile PCP - General 11/06/23
--- OUTSIDE RECORDS SUMMARY | 2024-10-16 14:11 | XMS_ITS ---
Author Organization Unknown Address [address] [place] [phone] Phone Care Team Providers Care Tele Tech Name Role Phone REBECA MACK APN Attending Unavailable KASIA HUNG PA-C Primary Unavailable Immunization Immunization Date Status Additional [...] Code Syst em Smoking History Former smoker 0520757 SNOMED CT Sex Female Medications Medication Start Date End Date Route Frequency Dose Code Code System Medication Instructions Home Meds ALPRAZolam 0.5MG Oral Tablet 06/20/2022 Unknown ORAL NEEDED 3 TIMES A DAY 0.5 MILLIGRAMS 056380 RxNorm TAKE 0.5 MILLIGRAMS ORAL NEEDED 3 TIMES A DAY Eliquis 5MG Oral Tablet 06/20/2022 Unknown ORAL TWICE A DAY 5 MILLIGRAMS 1740078 RxNorm TAKE 5 MILLIGRAMS ORAL TWICE A DAY Gabapentin 300MG Oral Capsule 06/20/2022 Unknown ORAL THREE TIMES A DAY 300 MILLIGRAMS 962412 RxNorm TAKE 300 MILLIGRAMS ORAL THREE TIMES A DAY Losartan Potassium 25MG Oral Tablet 06/20/2022 Unknown ORAL TWICE A DAY 25 MILLIGRAMS 628100 RxNorm TAKE 25 MILLIGRAMS ORAL TWICE A DAY Omeprazole 20 MG Oral Tablet, Delayed Release 06/20/2022 Unknown ORAL ONCE A DAY 20 MG RxNorm TAKE 20 MG ORAL ONCE A DAY buPROPion HCl 150MG Oral Tablet, Extended Release 06/20/2022 Unknown ORAL ONCE A DAY 150 MILLIGRAMS 168396 RxNorm TAKE 150 MILLIGRAMS ORAL ONCE A [...] de Code System No Known Allergies Active 113265170 SNO MED-CT Plan of Treatment Angela Established Visit 09/05/2023 Home Sleep Study Prep (24527) 4 Pharynx Esophagus Cine 04/11/2024 Encounters Encounter Diagnosis Start Date Code Code Sys tem Dysphagia 04/25/2024 [id number] SNOMED-CT Personal Care Team Section Performer Name Performer Role Active Date Inactive ANNE Hale PCP - Primary care physician 2022-06-15 2022-06-20 ANNE OWNG PCP - Primary care physician 2022-06-20 2022-06-20 ABHILASH PEDROZA PCP - Primary care physician
--- OUTSIDE RECORDS SUMMARY | 2024-10-16 14:11 | XMS_ITS | Referral Summary ---
Author Organization [facility] Address [address] [facility] [address] [place] [address] Phone Care Team Providers Care Hvac Specialist Name Role Phone Unknown, Notinfile Primary Care [...] (07/16/2018): Added automatically from request for surgery [id number] Rheumatoid arthritis of [facility] sites without rheumatoid factor 10/18/2016 High risk medication use 10/18/2016 Leg pain, bilateral 10/18/2016 Chronic low back pain without sciatica 7 Social History Tobacco Use Types Packs/Day Years Used Date Smoking Tobacco: Former Cigarettes Q uit: 2004 Smokeless Tobacco: Never Tobacco Cessation:Counseling Given: Not [...] on file 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 Gender Identity Not on file Sexual Orientation [...] 11/07/2023 12:24 PM CDT Plan of Treatment Not on file Procedures Procedure Name Priority Date/Time Associated Diagnosis Comments COLONOSCOPY 09/07/2018 8:29 AM CDT from Last 3 Months or Most Recently Relevant to Health Maintenance Results * COLONOSCOPY (09/07/2018 8:29 AM CDT) Anatomical Region Laterality Modality Other Narrative Procedure Note Soco Flores MD - 09/07/2018 8:29 AM CDT Digestive [facility] Patient Name: Josefina Urbano Procedure Date: 09/07/2018 8:29 AM Date of : 1955 Admit Type: Outpatient Age: 63 Gender: Female Attending MD: Soco Flores M.D. Room: [facility] ENDOSCOPY ROOM 1 Note Status: Finalized [...] passed under direct vision.The Pediatric Colonoscope [id number] [id number] was introduced through the anus and advanced [...] 8:29 AM Procedure Code(s): --- Professional --- 53454, Colonoscopy, flexible; diagnostic, including collection of specimen(s) by brushing or washing, when performed (separateprocedure) Diagnosis Code(s): --- Professional --- K64.8, Other hemorrhoids D50.9, Iron deficiency anemia, unspecified CPT copyright 2017 [employer]. All rights reserved. The codes documented in this report are preliminary and upon narcotics agent reviewmay be revised to meet current compliance requirements. Recognized by the [place] [employer] for promoting quality in endoscopy Soco Flores MD ENDOSCOPY PROCEDURES Final Result from Last 3 Months or Most Recently Relevant to Health Maintenance Insurance [facility] CHOICE PLUS [employer] [facility] ADVANTRA Advance Directives For more information, please contact: [phone] * Full Code (Latest Code Status on File) Date Activated Date Inactivated Comments 11/07/2023 12:17 PM 11/07/2023 7:30 PM * Full Code Date Activated Date Inactivated Comments 11/07/2023 12:17 PM 11/07/2023 12:17 PM * Full Code Date Activated Date Inactivated Comments 09/07/2018 8:22 AM 09/07/2018 2:42 PM * Full Code Date Activated Date Inactivated Comments 09/07/2018 8:22 AM 09/07/2018 8:22 AM Care Teams Hvac Specialist Relationship Specialty Start Date End Date Unknown, Notinfile PCP - General 11/06/23
--- OUTSIDE RECORDS SUMMARY | 2024-10-16 14:12 | XMS_ITS ---
Author Organization Unknown Address [address] [place] [phone] Phone Care Team Providers Care Production Broacher Name Role Phone WILLIAM WAN Attending Unavailable NO PCP Primary Unavailable Immunization [...] Code Syst em Smoking History Former smoker [id number] SNOMED CT Sex Female Medications Medication Start Date End Date Route Frequency Dose Code Code System Medication Instructions Home Meds ALPRAZolam 0.5MG Oral Tablet 06/20/2022 Unknown ORAL NEEDED 3 TIMES A DAY 0.5 MILLIGRAMS 432581 RxNorm TAKE 0.5 MILLIGRAMS ORAL NEEDED 3 TIMES A DAY Eliquis 5MG Oral Tablet 06/20/2022 Unknown ORAL TWICE A DAY 5 MILLIGRAMS 8753231 RxNorm TAKE 5 MILLIGRAMS ORAL TWICE A DAY Gabapentin 300MG Oral Capsule 06/20/2022 Unknown ORAL THREE TIMES A DAY 300 MILLIGRAMS 003545 RxNorm TAKE 300 MILLIGRAMS ORAL THREE TIMES A DAY Losartan Potassium 25MG Oral Tablet 06/20/2022 Unknown ORAL TWICE A DAY 25 MILLIGRAMS 345095 RxNorm TAKE 25 MILLIGRAMS ORAL TWICE A DAY Omeprazole 20 MG Oral Tablet, Delayed Release 06/20/2022 Unknown ORAL ONCE A DAY 20 MG RxNorm TAKE 20 MG ORAL ONCE A DAY buPROPion HCl 150MG Oral Tablet, Extended Release 06/20/2022 Unknown ORAL ONCE A DAY 150 MILLIGRAMS 958821 RxNorm TAKE 150 MILLIGRAMS ORAL ONCE A [...] de Code System No Known Allergies Active [id number] SNO MED-CT Plan of Treatment William Established Visit 09/05/2023 Home Sleep Study Prep (50320) 4 Pharynx Esophagus Cine 04/11/2024 Encounters Encounter Diagnosis Start Date Code Code Sys tem Sleep disorder, unspecified 07/27/2023 SNOMED-CT Personal Care Team Section Performer Name Performer Role Active Date Inactive Da vianca WONGNovember PCP - Primary care physician 2022-06-15 2022-06-20 MARVIN NOVEMBER PCP - Primary care physician 2022-06-20 2022-06-20 ABHILASH PEDROZA PCP - Primary care physician Procedures Notes [facility] 08/05/2023 13:18 Patient name: Josefina Urbano Date of Service: 07/27/2023 Referring physician: Dr. Miller Wan Indication: to assess for sleep apnea History: 68 year-old female, body weight 168 lbs, height 63 inches, BMI 29.9, was sent to have HSAT to assess for sleep apnea, has hypersomnia, ESS /, fibromyalgia, hypertension, previous diagnosis of sleep apne john Roy, was on CPAP years ago Methods: The study was recorded on a [employer] night 1 device using 1 RI P effort belt and the pressure- based flow sensor. The heart rate is dropped from the oximeter sensor and the snores signal is derived from the pressure sensors The device also records body position. The home sleep testing raw and scored data reviewed by entirety. Sleep summary: 573 minutes Cardiac summary: Average heart rate 74 BPM Respiratory summary: Patient was noted to have snoring, 16 obstructive apneas, 47 hypopneas, REMI/ AHI 7.4 /hour, lowest saturation 83 %, spent 103 minutes of sleep time under 89% Impression: Abnormal home sleep testing, consistent with mild obstructive sleep apnea hypopnea syndrome, REMI/ AHI 7.4/ hour Nocturnal hypoxemia Recommendations: 1. General recommendations to treat sleep apnea-hypopnea syndrome include weight reduction, assessment upper airways and thyroid function testing, education regarding sleep apnea and hypersomnia risks and benefits of treatment, safety specially in terms of driving and working on machineries, and close follow-up. 2. Patient needs further evaluation and treatment including full night titration, meanwhile could be started on auto PAP 7-15 CWP, close follow up, download, overnight oximetry and face to face evaluation Clinical correlation is required Marino Garg MD FCCP Diplomate, [place] [employer] of [employer] Medicine [facility] [employer]
--- OUTSIDE RECORDS SUMMARY | 2024-10-16 14:12 | XMS_ITS ---
Author Organization Unknown Address [address] [place] [phone] Phone Care Team Providers Care Press Clipper Name Role Phone WILLIAMSHABBIR DALYOJ Attending Unavailable NO PCP Primary Unavailable [...] Code Syst em Smoking History Former smoker 3854122 SNOMED CT Sex Female Vital Signs Vital Sign Value Unit Colbert Value Colbert Unit Date/Time Recent/Initial? Code Code System Systolic Blood Pressure 159 mm[Hg] 04/04/2023 09:49 Initial 8480-6 LOINC Diastolic Blood Pressure 108 mm[Hg] 04/04/2023 09:49 Initial 8462-4 LOINC O2 Saturation 94 % 2022 09:49 Initial 42010- 5 LOINC Pulse 89.0 /min 04/04/2023 09:49 Initial 8867-4 LOINC Respiration 20 /min 04/04/20 09:49 Initial 9279-1 LOINC Temperature 36.4 Palak 97.5 F 04/04/20 09:49 Initial 8310-5 LOINC Medications Medication Start Date End Date Route Frequency Dose Code Code System Medication Instructions Home Meds ALPRAZolam 0.5MG Oral Tablet 06/20/2022 Unknown ORAL NEEDED 3 TIMES A DAY 0.5 MILLIGRAMS 428442 RxNorm TAKE 0.5 MILLIGRAMS ORAL NEEDED 3 TIMES A DAY Eliquis 5MG Oral Tablet 06/20/2022 Unknown ORAL TWICE A DAY 5 MILLIGRAMS 9756246 RxNorm TAKE 5 MILLIGRAMS ORAL TWICE A DAY Gabapentin 300MG Oral Capsule 06/20/2022 Unknown ORAL THREE TIMES A DAY 300 MILLIGRAMS 917594 RxNorm TAKE 300 MILLIGRAMS ORAL THREE TIMES A DAY Losartan Potassium 25MG Oral Tablet 06/20/2022 Unknown ORAL TWICE A DAY 25 MILLIGRAMS 769341 RxNorm TAKE 25 MILLIGRAMS ORAL TWICE A DAY Omeprazole 20 MG Oral Tablet, Delayed Release 06/20/2022 Unknown ORAL ONCE A DAY 20 MG RxNorm TAKE 20 MG ORAL ONCE A DAY Venlafaxine HCl 150MG Oral Capsule, Extended Release 06/20/2022 4 ORAL ONCE A DAY 150 MILLIGRAMS 872887 RxNorm TAKE 150 MILLIGRAMS ORAL ONCE A DAY buPROPion HCl 150MG Oral Tablet, Extended Release 06/20/2022 Unknown ORAL ONCE A DAY 150 MILLIGRAMS 464470 RxNorm TAKE 150 MILLIGRAMS ORAL ONCE A [...] de Code System No Known Allergies Active 107287508 SNO MED-CT Plan of Treatment William Established Visit 09/05/2023 Home Sleep Study Prep (95884) 4 Pharynx Esophagus Cine 04/11/2024 Encounters Encounter Diagnosis Start Date Code Code Sys tem Canceled operative procedure 04/04/2023 13107318 SNOMED-CT Personal Care Team Section Performer Name Performer Role Active Date Inactive ANNE Hale PCP - Primary care physician 2022-06-15 2022-06-20 ANNE WONG PCP - Primary care physician 2022-06-20 2022-06-20 ABHILASH PEDROZA PCP - Primary care physician Discharge Summary Notes [facility] [address] 04/04/2023 09:48 Outpatient Rheumatology Record [address] [place] [address] Outpatient Rheumatology Record Main Line: [phone] Patient: FAUZIA SAMANO Gender: F MR#: [id number] Service Code: C Address: [address] [place] [address] City: [facility] State: [place] Zip Code: [address] Admitting Physician: DONNA Family Physician: ODALYS PCP Date of : [id number] Age: 68 Date: [id number] Time: 0948 p. 1 of 1 VS Temperature Pulse Respiration Blood Pressure O2 Saturation 97.5 Tympanic 89 20 159/108 Right Arm Sitting 94 VS New Weight(kg)/Height New BMI (select to access below applications) Allergies Problem List Health History Family Health History Immunizations Nurses Notes Office visit was cancelled and rescheduled per provider. Nurse's Signature Jackelyn ARREDONDO, MSN, RN, CPN Date [id number] Time 1000
--- OUTSIDE RECORDS SUMMARY | 2024-10-16 14:12 | XMS_ITS ---
Author Organization Unknown Address [address] [place] [phone] Phone Care Team Providers Care Chocolate Finisher Name Role Phone REBECA MACK APN Attending [...] quadrivalent, PF 06/28/2022 Completed 150 CVX Results Pharynx Study w Speech - Com pleted: 04/11/2024 09:20 LOINC: EXAM DESCRIPTION: Pharynx Study w Speech REASON FOR STUDY: DIFFICULTY SWALLOWING FOOD GET STUCK Duration: 1 year RADIATION DOSE: Dose: 11.110 Gycm2 Dose Area Product (DAP) TECHNIQUE: Fluoroscopic assistance provided to Speech Pathology Department who performed the exam. The patient was brought into the fluoro room and placed upright on a modified barium swallow chair. The patient was then given multiple consistencies mixed with barium to swallow under live fluoroscopic video guidance. COMPARISON: None FINDINGS: Initiation of swallowing is prompt. There is minimal hypopharyngeal residual, predominantly in the vallecula, after swallowing; however, this largely clears with subsequent spontaneous swallows. No penetration or aspiration. Cursory evaluation of the esophagus in the AP projection demonstrates mildly decreased primary esophageal peristalsis. There is acute leftward deviation of the extreme distal esophagus which could relate to a moderately large partially opacified hiatal hernia. Correlation with any surgical history at the gastroesophageal junction also recommended. Barium esophagram should be considered for additional evaluation. IMPRESSION: As described above. Please correlate with Speech Pathology report. THIS IS AN ELECTRONICALLY VERIFIED FINAL REPORT 04/11/2024 10:49 AM - Electronically signed by Micah Coreas M.D. RB: MIKEY Report ID: [id number] Reading Location: [place] [address] Social History Type Status Start Date End Date Code Code Syst em Smoking History Former smoker 4806127 SNOMED CT Sex Female Medications Medication Start Date End Date Route Frequency Dose Code Code System Medication Instructions Home Meds ALPRAZolam 0.5MG Oral Tablet 06/20/2022 Unknown ORAL NEEDED 3 TIMES A DAY 0.5 MILLIGRAMS 204864 RxNorm TAKE 0.5 MILLIGRAMS ORAL NEEDED 3 TIMES A DAY Eliquis 5MG Oral Tablet 06/20/2022 Unknown ORAL TWICE A DAY 5 MILLIGRAMS 9537109 RxNorm TAKE 5 MILLIGRAMS ORAL TWICE A DAY Gabapentin 300MG Oral Capsule 06/20/2022 Unknown ORAL THREE TIMES A DAY 300 MILLIGRAMS 727529 RxNorm TAKE 300 MILLIGRAMS ORAL THREE TIMES A DAY Losartan Potassium 25MG Oral Tablet 06/20/2022 Unknown ORAL TWICE A DAY 25 MILLIGRAMS 268661 RxNorm TAKE 25 MILLIGRAMS ORAL TWICE A DAY Omeprazole 20 MG Oral Tablet, Delayed Release 06/20/2022 Unknown ORAL ONCE A DAY 20 MG RxNorm TAKE 20 MG ORAL ONCE A DAY buPROPion HCl 150MG Oral Tablet, Extended Release 06/20/2022 Unknown ORAL ONCE A DAY 150 MILLIGRAMS 501572 RxNorm TAKE 150 MILLIGRAMS ORAL ONCE A [...] de Code System No Known Allergies Active 745312971 SNO MED-CT Plan of Treatment Angela Established Visit 09/05/2023 Home Sleep Study Prep (64572) 4 Pharynx Esophagus Cine 04/11/2024 Encounters Encounter Diagnosis Start Date Code Code Sys tem Pharyngeal dysphagia 04/11/2024 [id number] SNOME D-CT Personal Care Team Section Performer Name Performer Role Active Date Inactive Da ANNE Pierce PCP - Primary care physician 2022-06-15 2022-06-20 ANNE WONG PCP - Primary care physician 2022-06-20 2022-06-20 ABHILASH PEDROZA PCP - Primary care physician
--- OUTSIDE RECORDS SUMMARY | 2024-10-16 14:12 | XMS_ITS ---
Author Organization Unknown Address [address] [place] [phone] Phone Care Team Providers Care Final Inspector Paper Name Role Phone ROBBIN Lieberman Attending Unavailable KASIA HUNG PA-C Primary Unavailable [...] Code Syst em Smoking History Former smoker 8000782 SNOMED CT Sex Female Medications Medication Start Date End Date Route Frequency Dose Code Code System Medication Instructions Home Meds ALPRAZolam 0.5MG Oral Tablet 06/20/2022 Unknown ORAL NEEDED 3 TIMES A DAY 0.5 MILLIGRAMS 115414 RxNorm TAKE 0.5 MILLIGRAMS ORAL NEEDED 3 TIMES A DAY Eliquis 5MG Oral Tablet 06/20/2022 Unknown ORAL TWICE A DAY 5 MILLIGRAMS 9237851 RxNorm TAKE 5 MILLIGRAMS ORAL TWICE A DAY Gabapentin 300MG Oral Capsule 06/20/2022 Unknown ORAL THREE TIMES A DAY 300 MILLIGRAMS 586540 RxNorm TAKE 300 MILLIGRAMS ORAL THREE TIMES A DAY Losartan Potassium 25MG Oral Tablet 06/20/2022 Unknown ORAL TWICE A DAY 25 MILLIGRAMS 796322 RxNorm TAKE 25 MILLIGRAMS ORAL TWICE A DAY Omeprazole 20 MG Oral Tablet, Delayed Release 06/20/2022 Unknown ORAL ONCE A DAY 20 MG RxNorm TAKE 20 MG ORAL ONCE A DAY buPROPion HCl 150MG Oral Tablet, Extended Release 06/20/2022 Unknown ORAL ONCE A DAY 150 MILLIGRAMS 741327 RxNorm TAKE 150 MILLIGRAMS ORAL ONCE A [...] de Code System No Known Allergies Active 795685755 SNO MED-CT Plan of Treatment Angela Established Visit 09/05/2023 Home Sleep Study Prep (93546) Pharynx Esophagus Cine 04/11/2024 Encounters Encounter Diagnosis Start Date Code Code Sys tem Dysphagia, unspecified 05/09/2024 SNOME D-CT Personal Care Team Section Performer Name Performer Role Active Date Inactive ANNE Hale PCP - Primary care physician 2022-06-15 2022-06-20 ANNE WONG PCP - Primary care physician 2022-06-20 2022-06-20 ABHILASH PEDROZA PCP - Primary care physician
--- OUTSIDE RECORDS SUMMARY | 2024-10-16 14:13 | XMS_ITS ---
Author Organization Unknown Address [address] [place] [phone] Phone Care Team Providers Care Adjuster Piano Action Name Role Phone REBECA MACK APN Attending [...] Code Syst em Smoking History Former smoker 3823665 SNOMED CT Sex Female Medications Medication Start Date End Date Route Frequency Dose Code Code System Medication Instructions Home Meds ALPRAZolam 0.5MG Oral Tablet 06/20/2022 Unknown ORAL NEEDED 3 TIMES A DAY 0.5 MILLIGRAMS 646980 RxNorm TAKE 0.5 MILLIGRAMS ORAL NEEDED 3 TIMES A DAY Eliquis 5MG Oral Tablet 06/20/2022 Unknown ORAL TWICE A DAY 5 MILLIGRAMS 5415300 RxNorm TAKE 5 MILLIGRAMS ORAL TWICE A DAY Gabapentin 300MG Oral Capsule 06/20/2022 Unknown ORAL THREE TIMES A DAY 300 MILLIGRAMS 221555 RxNorm TAKE 300 MILLIGRAMS ORAL THREE TIMES A DAY Losartan Potassium 25MG Oral Tablet 06/20/2022 Unknown ORAL TWICE A DAY 25 MILLIGRAMS 327803 RxNorm TAKE 25 MILLIGRAMS ORAL TWICE A DAY Omeprazole 20 MG Oral Tablet, Delayed Release 06/20/2022 Unknown ORAL ONCE A DAY 20 MG RxNorm TAKE 20 MG ORAL ONCE A DAY buPROPion HCl 150MG Oral Tablet, Extended Release 06/20/2022 Unknown ORAL ONCE A DAY 150 MILLIGRAMS 429539 RxNorm TAKE 150 MILLIGRAMS ORAL ONCE A [...] de Code System No Known Allergies Active 537188528 SNO MED-CT Plan of Treatment Angela Established Visit 09/05/2023 Home Sleep Study Prep (34346) 4 Pharynx Esophagus Cine 04/11/2024 Encounters Encounter Diagnosis Start Date Code Code Sys tem Dysphagia 03/21/2024 17868484 SNOMED-CT Personal Care Team Section Performer Name Performer Role Active Date Inactive ANNE Hale PCP - Primary care physician 2022-06-15 2022-06-20 ANNE WONG PCP - Primary care physician 2022-06-20 2022-06-20 ABHILASH PEDROZA PCP - Primary care physician
== END 2024-10-16 12:47 | disposition home or self-care (01) ==
LOC: CHSIMG 12:49
PROVIDERS: PCP Physician Assistant; Visit Provider Physician Assistant
DX: M25.561 Pain in right knee (principal)
CPT/HCPCS: 73562

== ENCOUNTER 2025-01-14 13:39 | Outpatient (CLI) | payer MEDICARE, SELFPAY ==
--- NOTE | ~2025-01-14 | XR_ITS ---
EXAMINATION: XR shoulder RT min 2V, 01/14/2025 13:45 CDT HISTORY: RIGHT SHOULDER PAIN COMPARISON: No comparisons available. Findings: No acute fracture or malalignment. Moderate to severe degenerative changes Soft tissues unremarkable. Impression: No acute fracture or malalignment. Reviewed, dictated and finalized at location A. Impression: No acute fracture or malalignment.
--- OUTSIDE RECORDS SUMMARY | 2025-01-14 15:23 | XMS_ITS | Encounter Summary ---
Author Organization [facility] Address [address] [place] [address] Phone Care Team Providers Care Statistical Analyst Name Role Phone Yessenia Ernst MD Primary Care Provider [phone] Lacey Mccarthy APRN, SPECIAL EDUCATION RESOURCE ROOM TEACHER Unavailable Reason for Visit * Reason Comments Medication Refill Encounter Details Date Type Department Care Team (Late st Contact Info) Description 02/24/2021 Refill [facility] [address] [place] [address] Yessenia Ernst MD [address] [place] [address] Medication Refill Social History Tobacco [...] Provider Dept 04/28/20 Telemedicine Sherron Funes APRN, SPECIAL EDUCATION RESOURCE ROOM TEACHER [facility] 03/10/20 Office Visit Yessenia Ernst MD [facility] Showing recent visits within past 365 [...] Total Score: 0 03/10/20 20 11:00 AM EROSION CONTROL COORDINATOR documented as of this encounter Care Teams Statistical Analyst Relationship Specialty Start Date End Date Yessenia Ernst MD PCP - General Family Medicine 02/16/15 07/18/23 Lacey Mccarthy APRN, SPECIAL EDUCATION RESOURCE ROOM TEACHER Obstetrics & Gynecology 06/09/17 documented as of this encounter
--- OUTSIDE RECORDS SUMMARY | 2025-01-14 15:23 | XMS_ITS | Clinical Summary ---
Author Organization [facility] Address [address] [place] [address] Care Team Providers Care Group Care Worker Name Role Phone Khurram Varghese Primary Care Provider Abimbola hudson Source Comments [facility],non-owned Affiliates and Associated Physician Practices is amultiple site organization consisting of ambulatory clinics and hospital sitesin [place], [place], [place] and [place]. This disclosure is being madepursuant to the Care Everywhere program and may not contain all information available regarding this patient. 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 Not on [...] - Risk 60-74 years 1-dose series) 2017 DEPRESSION SCREENING 05/01/2024 COVID-19 VACCINE (1 - 2023-2 5 season) 2024 INFLUENZA VACCINE (#1) 2024 HEPATITIS B VACCINE Aged Out No [...] CDT) Cholesterol 172 120.0 - 200.0 mg/dl [facility] Triglycerides 50 0.0 - 250.0 mg/dl [facility] HDL Cholesterol 88 >40 mg/dl [facility] LDL Calculated 74.0 mg/dl [facility] Chol HDL Ratio 2.0 [facility] Comment Lipid [facility] Comment: Risk Classification HDL CHOL LDL CHOL TOTAL CHOL According to NCEP (mg/dl) (mg/dL) (mg/dl) Desirable >40 <130 < 200 Borderline/High - 130-159 200-239 High - >159 > 239 The total cholesterol to HDL cholesterol ratio may be used to predict risk for coronary heart disease in untreated patients according to data reported from the [place] Study by Chang Baig M.D. The predictive [...] MD LAB - CHEMISTRY ORDERABLES nal Result [facility] [address] [place] [address] from Last 3 Months or Most Recently Relevant to Health Maintenance Insurance [employer] Advance Directives * Full Code (Latest Code Status on File) Date Activated Date Inactivated Comments 07/15/2009 11:27 AM 07/21/2009 1:28 AM Care Teams Group Care Worker Relationship Specialty Start Date End Date Khurram Varghese PCP - General 12/18/17
--- OUTSIDE RECORDS SUMMARY | 2025-01-14 15:23 | XMS_ITS | Clinical Summary ---
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 Room: [facility] ENDOSCOPY ROOM 1 Note Status: Finalized Patient [...] passed under direct vision.The Pediatric Colonoscope PCF-H190L [id number] was introduced through the anus and advanced [...] 8:29 AM Procedure Code(s): --- Professional --- 76473, Colonoscopy, flexible; diagnostic, including collection of specimen(s) by brushing or washing, when performed (separateprocedure) Diagnosis Code(s): --- Professional --- K64.8, Other hemorrhoids D50.9, Iron deficiency anemia, unspecified CPT copyright 2017 [employer]. All rights reserved. The codes documented in this report are preliminary and upon ict analyst reviewmay be revised to meet current compliance requirements. Recognized by the [place] [employer] for promoting quality in endoscopy Soco Flores MD ENDOSCOPY PROCEDURES Final Result from Last 3 Months or Most Recently Relevant to Health Maintenance Insurance [facility] Advance Directives For more information, please contact: [phone] * Full Code (Latest Code Status on File) Date Activated Date Inactivated Comments 11/07/2023 12:17 PM 11/07/2023 7:30 PM * Full Code Date Activated Date Inactivated Comments 11/07/2023 12:17 PM 11/07/2023 12:17 PM * Full Code Date Activated Date Inactivated Comments 09/07/2018 8:22 AM 09/07/2018 2:42 PM * Full Code Date Activated Date Inactivated Comments 09/07/2018 8:22 AM 09/07/2018 8:22 AM Care Teams Music Teacher Relationship Specialty Start Date End Date Unknown, Notinfile PCP - General 11/06/23
--- OUTSIDE RECORDS SUMMARY | 2025-01-14 15:23 | XMS_ITS | Clinical Summary ---
Author Organization [facility] Address [address] [place] [address] Phone Care Team Providers Care Independent Agent Music Education Name Role Phone Lacey Mccarthy APRN, RATE CLERK Unavailable [phone] Allergies No known active allergies Medications omeprazole [...] Comments Blood Pressure 124/82 03/10/2020 11:43 AM GEOGRAPHY HEAD Pulse 75 03/10/2020 11:43 AM GEOGRAPHY HEAD Temperature 36.4 C (97.6 F) 03/10/2020 11:43 AM GEOGRAPHY HEAD Respiratory Rate 18 03/10/2020 11:43 AM GEOGRAPHY HEAD Oxygen Saturation 97% 03/10/2020 11:43 AM GEOGRAPHY HEAD Inhaled Oxygen Concentration - - Weight 77.7 kg (171 lb 6.4 oz) 03/10/2020 11:43 AM GEOGRAPHY HEAD Height 160 cm (5' 3) 03/10/2020 11:43 AM GEOGRAPHY HEAD Body Mass Index 30.36 03/10/2020 11:43 AM GEOGRAPHY HEAD Plan of Treatment Health Maintenance Due Date [...] 3 - 19+ 3-dose series) 07/03/2019 06/05/2019 Influenza Immunization (#1) 12/30/202403/01, 02/17/2018, 02/01/2016, Additional history exists SARS-COV-2 Immunization (1 - season) 2024 Td Immunization Every 10 Years (Adults With 1 Tdap) 05/14/2028 05/14/2018, 03/07/2018, 01/19/2015 Colonoscopy 09/07/2028 09/07/2018, 09/07/2018 Colorectal Cancer Screening 09/07/2028 DEXA Bone Density Discontinued 02/11/2016, 02/11/2016 Mammogram Discontinued 07/03/2018, 04/04/2016 Human Papillomavirus (HPV) Immunization Aged Out No longer eligible based on patient's age to complete this topic Meningococcal Immunization (ACWY) Aged Out No longer eligible based on patient's age to complete this topic Rotavirus Immunization Aged Out No lo nger eligible based on patient's age to complete this topic Procedures Procedure Name Priority Date/Time Associated Diagnosis Comments COLONOSCOPY Routine 09/07/2018 [facility] SCREENING BILATERAL DIGITAL W CAD W KATT Routine 07/03/2018 4:38 PM GEOGRAPHY HEAD Screening for malignant neoplasm of breast CIARAN BONE DENSITOMETRY AXIAL SKELETON Routine 02/11/2016 from Last 3 Months or Most Recently Relevant to Health Maintenance Results * HM COLONOSCOPY (09/07/2018) us Soco Flores MD PROCEDURE/MINOR SURGICAL OR DERABLES Edited Result - Final * [facility] SCREENING BILATERAL DIGITAL W CAD W KATT (07/03/2018 4:38 PM GEOGRAPHY HEAD) Anatomical Region Laterality Modality breast Bilateral Mammography 07/03/2018 4:07 PM GEOGRAPHY HEAD Narrative 07/04/2018 1:10 PM GEOGRAPHY HEAD - [facility] SCREENING BILATERAL DIGITAL W CAD W KATT [...] to exams dated: 04/04/2016, 12/23/2014, and 07/17/2013 [facility]. BREAST TISSUE:There are scattered fibroglandular densities in [...] contacted. Electronically signed by: Sandhya zhao/kim:07/04/2018 12:08:16 Regrind Mill Operator: Martha BENSON(Guillermo)(Jazzy), [facility] letter sent: Additional Imaging Reading location: [facility] BI-RADS: 0 Additional Imaging Evaluation Needed Procedure Note Sandhya Alonso MD - 07/04/2018 - [facility] SCREENING BILATERAL DIGITAL W CAD W KATT [...] to exams dated: 04/04/2016, 12/23/2014, and 07/17/2013 [facility]. BREAST TISSUE:There are scattered fibroglandular densities in [...] contacted. Electronically signed by: Sandhya zhao/kim:07/04/2018 12:08:16 Regrind Mill Operator: Martha BETANCOURT)(M), [facility] letter sent: Additional Imaging Reading location: [place] BI-RADS: 0 Additional Imaging Evaluation Needed us Yessenia Ernst MD IMG MAMMO ORDERABLES Final R esult * CIARAN BONE DENSITOMETRY AXIAL SKELETON (02/11/2016) Anatomical Region Laterality Modality BODY N/A Other us Niraj John MD IMG DEXA ORDERABLES Final Result from Last 3 Months or Most Recently Relevant to Health Maintenance Insurance [facility] , [address] [address] Care Teams Independent Agent Music Education Relationship Specialty Start Date End Date Lacey Mccarthy APRN, RATE CLERK Obstetrics & Gynecology 06/09/17
--- OUTSIDE RECORDS SUMMARY | 2025-01-14 15:23 | XMS_ITS | Encounter Summary ---
Author Organization [facility] Address [address] [place] [address] Phone Care Team Providers Care Grants Analyst Name Role Phone Yessenia Ernst MD Primary Care Provider Lacey Mccarthy APRN, UTILITY TENDER CARDING Unavailable Reason for Visit * Reason Comments Medication Refill Encounter Details Date Type Department Care Team (Late st Contact Info) Description 05/06/2020 Refill [facility] - Primary Care - [place] [place] [address] Yessenia Ernst MD [address] [place] [address] Medication Refill Social History Tobacco [...] COVID-19? No / Unsure 05/06/2020 10:30 AM REGIONAL PRODUCTION MANAGER documented as of this encounter Miscellaneous Notes * Telephone Encounter - Marian Kumar Sofia, [facility] - 05/06/2020 9:39 AM CST Medication failed [...] week ago Chronic pain of left knee [facility] Sherron Funes APN, UTILITY TENDER CARDING 1 month ago Physical exam, annual (Adult) [facility] Yessenia Ernst MD 1 year ago Physical exam, annual (Adult) [facility] Yessenia Ernst MD 1 year ago Left shoulder pain, unspecified chronicity [facility] Yessenia Ernst MD 1 year ago Anemia, unspecified type [facility] Dayanna John September, PAC Upcoming Appointments Future Appointments Today [address] MRI, [facility] In 1 month Yessenia Ernst MD [facility] HOME AGENT - Recent and Past Visits Recent Visits Date Type Provider Dept 04/28/20 Telemedicine Sherron Funes APN, UTILITY TENDER CARDING [facility] 03/10/20 Office Visit Yessenia Ernst MD [facility] [address] Showing recent visits within past 460 days with a meds authorizing provider and meeting all other requirements Future Appointments Date Type Provider Dept 06/15/20 Appointment [facility] Show[facility] future appointments within next 90 days with a meds authorizing provider and meeting all other requirements ONAL PRODUCTION MANAGER documented in this encounter Plan of Treatment Not on file documented as of this encounter Visit Diagnoses Diagnosis Depression with anxiety Dysthymic disorder documented in this encounter Additional Health Concerns Assessment Noted Time PHQ-9 Depression Total Score: 0 03/10/20 20 11:00 AM REGIONAL PRODUCTION MANAGER documented as of this encounter Care Teams Grants Analyst Relationship Specialty Start Date End Date Yessenia Ernst MD PCP - General Family Medicine 02/16/15 07/18/23 Lacey Mccarthy, ASSESSMENT CONSULTANT, UTILITY TENDER CARDING Obstetrics & Gynecology 06/09/17 documented as of this encounter
--- OUTSIDE RECORDS SUMMARY | 2025-01-14 15:23 | XMS_ITS | Encounter Summary ---
Author Organization [facility] Address [address] [place] [address] Phone Care Team Providers Care Smoke Room Operator Name Role Phone Yessenia Ernst MD Primary Care Provider Lacey Mccarthy APRN, PSYCHIATRIC TECH Unavailable Reason for Visit * Reason Comments Medication Refill Encounter Details Date Type Department Care Team (Late st Contact Info) Description 01/03/2022 Refill [facility] - Primary [facility] - [address] [place] [address] Yessenia Ernst MD [address] [place] [address] Medication Refill Social History Tobacco [...] Total Score: 0 03/10/20 20 11:00 AM FIXED INCOME DIRECTOR documented as of this encounter Care Teams Smoke Room Operator Relationship Specialty Start Date End Date Yessenia Ernst MD PCP - General Family Medicine 02/16/15 07/18/23 Lacey Mccarthy, MOHS SURGEON, PSYCHIATRIC TECH Obstetrics & Gynecology 06/09/17 documented as of this encounter
--- OUTSIDE RECORDS SUMMARY | 2025-01-14 15:23 | XMS_ITS | Encounter Summary ---
Author Organization [facility] Address [address] [place] [address] Phone Care Team Providers Care Lime Vat Tender Name Role Phone Yessenia Ernst MD Primary Care Provider Lacey Mccarthy APRN, DIRECTOR GENERAL Unavailable [phone] Reason for Visit * Reason Comments Medication Refill Encounter Details Date Type Department Care Team (Late st Contact Info) Description 02/23/2021 Refill [facility] [address] [place] [address] Yessenia Ernst MD [address] [place] [address] Medication Refill Social History Tobacco [...] no answer at this time. Letter mailed. HOSTLER * Telephone Encounter - Gena Bustillo RN - 03/16/2021 1:44 PM CST 2nd Attempt to call patient, no answer at this time. Left message to call back. HOSTLER * Telephone Encounter - Gena Bustillo RN [...] months ago Chronic pain of left knee [facility] - Family Medicine [facility] HuSherron hopson APN, CNP 11 months ago Physical exam, annual (Adult) [facility] Yessenia Ernst MD 2 years ago [facility]Adult[facility] Yessenia Vanessa MD 2 years ago Left shoulder pain, unspecified chronicity [facility] - Yessenia Vanessa MD 2 years ago Anemia, unspecified type [facility] Dayanna John September, Upcoming Appointments [facility] - Recent and Past Visits Recent Visits Date Type Provider Dept 04/28/20 Telemedicine Sherron Funes APN, CNP [facility] 03/10/20 Office Visit Yessenia Ernst MD [facility] Showing recent visits within past 460 days [...] Total Score: 0 03/10/20 20 11:00 AM YARD HOSTLER documented as of this encounter Care Teams Lime Vat Tender Relationship Specialty Start Date End Date Yessenia Ernst MD PCP - General Family Medicine 02/16/15 07/18/23 Lacey Mccarthy APRN, CNP Obstetrics & Gynecology 06/09/17 documented as of this encounter
== END 2025-01-14 13:40 | disposition home or self-care (01) ==
LOC: CHSIMG 13:41
PROVIDERS: PCP Physician Assistant; Visit Provider Physician Assistant
DX: M25.511 Pain in right shoulder (principal)
CPT/HCPCS: 73030